=== PATIENT | male | born 1935 | race Caucasian/White ===

== ENCOUNTER → 2017-06-29 | Outpatient (CLI) | payer OTHER | LOC: FIMAGING 09:07 | PROVIDERS: ATTEND Internal Medicine | DX: S22.060A Wedge compression fracture of T7-T8 vertebra, initial encounter for closed fracture (principal) ==

== ENCOUNTER → 2017-07-18 | Outpatient (CLI) | payer OTHER | LOC: BMCIMAGING 13:17 | PROVIDERS: ATTEND Internal Medicine | DX: Z13.820 Encounter for screening for osteoporosis (principal); M81.0 Age-related osteoporosis without current pathological fracture ==

== ENCOUNTER 2018-09-26 19:08 | Inpatient (IN) | payer OTHER ==
--- NOTE | 2018-09-26 19:17 | EDPHY ---
H & P Time Seen by Provider: 09/26/18 19:14 Constitutional: Initial Vital Signs Temperature (C) 36.9 C 09/26/18 19:20 Heart Rate 56 L 09/26/18 19:20 Respiratory Rate 18 09/26/18 19:20 Blood Pressure 122/71 H 09/26/18 19:20 O2 Sat (%) 96 09/26/18 19:20 O2 Delivery Mode Room Air Allergies/Adverse Reactions: No Known Allergies Allergy (Unverified 09/26/18 19:28) Home Medications: Medication Instructions Recorded Aspirin [Aspirin 81mg (*)] 81 mg PO DAILY 09/26/18 Atorvastatin Calcium 40 mg PO DAILY@18 09/26/18 C/E/Zn/Cu/OM3/DHA/EPA/LUT/ZEAX 1 each PO DAILY@18 09/26/18 [Preservision Areds 2 Softgel] Calcium Citrate/Vitamin D3 1 each PO BID 09/26/18 [Calcium Cit 200-Vit D3 250 Tab] Cholecalciferol Vit D3 [Vitamin D3] 1 each PO DAILY@18 09/26/18 DULoxetine [Cymbalta 30 MG (*)] 30 mg PO DAILY@18 09/26/18 Donepezil HCl 10 mg PO DAILY@18 09/26/18 Ferrous Sulfate 325 mg PO DAILY@18 09/26/18 Gabapentin [Neurontin 100 MG (*)] 300 mg PO HS 09/26/18 Levothyroxine [Synthroid 75 mcg 75 mcg PO DAILY06 09/26/18 (*)] Memantine HCl 10 mg PO BID 09/26/18 Metoprolol Succinate 1.5 each PO DAILY 09/26/18 Sacubitril/Valsartan 24/26Mg 1 each PO BID 09/26/18 [Entresto 24 mg/26 mg (RX)] oxyCODONE HCL/ACETAMINOPHEN 0.25 - 0.5 each PO Q4-6PRN PRN 09/26/18 [Oxycodone-Acetaminophen 5-325] Medical Decision Making - Diagnostics Imaging Results: Imaging Impressions Head CT 09/26/18 19:17 Impression: Advanced senescent features, with no acute intracranial abnormality identified on this unenhanced CT evaluation. Findings were discussed with Cali Daniel MD at 19:36, on 09/26/2018. Head CTA 09/26/18 19:19 Impression: 1. Atherosclerotic features associated with the proximal internal carotid arteries, left greater than right, with a 19% MDS of the right ICA and a 42% MDS of the left ICA. 2. Dominant left vertebral artery with diminutive though patent right vertebral artery. CT ANGIOGRAPHY OF THE BRAIN: The major vessels of the [place] are well visualized, and there is no aneurysm, vascular malformation, flow-limiting stenosis, or acute occlusion identified. The distal cervical, petrous, cavernous , and supraclinoid portions of the internal carotid arteries are patent, although there is atherosclerotic calcific plaque associated with the peripheral margins of the cavernous and proximal supraclinoid portions of the ICAs. The A1 and A2 segments are patent as are the M1, M2, and M3 trifurcation vessels. With regards to the posterior circulation, the right vertebral artery is a diminutive vessel, ending at the level of the right PICA, and the right AICA is significantly hypoplastic. The left vertebral artery is the more dominant vessel, with some minimal calcific plaque near the skull base, and provides inflow to the basilar artery. The left AICA, the right and left superior cerebellar arteries, and the right and left posterior cerebral arteries are patent (although the right HORSE BREAKER is provided inflow from the anterior circulation via a patent right posterior communicating artery ( circulatory variant)). Impression: There is no acute intra-arterial thrombus or hemodynamically significant stenosis identified. CT Source Data: The lung apices are clear. The visualized prevertebral soft tissues are unremarkable. There are degenerative features of the mid cervical spine. The patient has a left subclavian AICD pacemaker, which precludes MR evaluation. Advanced cortical atrophy and chronic microvascular ischemic gliosis have been previously discussed. Measurement of carotid stenosis is based on the residual internal carotid diameter with [place] Symptomatic Carotid Endarterectomy Trial (NASCET) based stenosis levels. Findings were discussed with Cali Daniel MD at 20:08, on 09/26/2018. Neck CTA 09/26/18 19:19 Impression: 1. Atherosclerotic features associated with the proximal internal carotid arteries, left greater than right, with a 19% MDS of the right ICA and a 42% MDS of the left ICA. 2. Dominant left vertebral artery with diminutive though patent right vertebral artery. CT ANGIOGRAPHY OF THE BRAIN: The major vessels of the [place] are well visualized, and there is no aneurysm, vascular malformation, flow-limiting stenosis, or acute occlusion identified. The distal cervical, petrous, cavernous , and supraclinoid portions of the internal carotid arteries are patent, although there is atherosclerotic calcific plaque associated with the peripheral margins of the cavernous and proximal supraclinoid portions of the ICAs. The A1 and A2 segments are patent as are the M1, M2, and M3 trifurcation vessels. With regards to the posterior circulation, the right vertebral artery is a diminutive vessel, ending at the level of the right PICA, and the right AICA is significantly hypoplastic. The left vertebral artery is the more dominant vessel, with some minimal calcific plaque near the skull base, and provides inflow to the basilar artery. The left AICA, the right and left superior cerebellar arteries, and the right and left posterior cerebral arteries are patent (although the right HORSE BREAKER is provided inflow from the anterior circulation via a patent right posterior communicating artery ( circulatory variant)). Impression: There is no acute intra-arterial thrombus or hemodynamically significant stenosis identified. CT Source Data: The lung apices are clear. The visualized prevertebral soft tissues are unremarkable. There are degenerative features of the mid cervical spine. The patient has a left subclavian AICD pacemaker, which precludes MR evaluation. Advanced cortical atrophy and chronic microvascular ischemic gliosis have been previously discussed. Measurement of carotid stenosis is based on the residual internal carotid diameter with [place] Symptomatic Carotid Endarterectomy Trial (NASCET) based stenosis levels. Findings were discussed with Cali Daniel MD at 20:08, on 09/26/2018. Imaging: Discussed imaging studies w/ call center director Radiologist, I viewed and interpreted images myself ED Course/Re-evaluation: CHIEF COMPLAINT: Weakness HISTORY OF PRESENT ILLNESS: The patient is an 83 y/o male with a history of a pacemaker arriving with his after he developed weakness on the right side and vision issues in his right eye. Per his the patient has been more weak since Saturday, 3 days ago. Today the patient fell over and then developed right-sided weakness. The patient is unsure if he hit his head upon impact. After the fall he started complaining of right vision loss and his noticed that the patient was listing to the right. He does take 81mg PO Aspirin daily; he is not on any anticoagulants. No fever, headache, body aches, lightheadedness, chest pain, heart palpitations, shortness of breath, cough, abdominal pain, urinary or bowel complaints, numbness, paresthesias. REVIEW OF SYSTEMS: A 10 point review of systems was performed and is negative with the exception of the elements mentioned in the history of present illness. PHYSICAL EXAM: HR, BP, O2 Sat, RR. Temp noted General Appearance: Alert, well hydrated, listing to the right, and non-toxic appearing. Head: Atraumatic without scalp tenderness or obvious injury Eyes: Pupils equal, round, reactive to light and accommodation, EOMI, no trauma , no injection. Ears: Clear bilaterally, no perforation, normal landmarks Nose: Atraumatic, no rhinorrhea, clear. Throat: There is no erythema or exudates, no lesions, normal tonsils, mucus membranes moist. Neck: Supple, 2+ carotid upstroke, nontender, no lymphadenopathy. Respiratory: No retractions, no distress, no wheezes, and no accessory muscle use. Lungs are clear to auscultation bilaterally. Cardiovascular: Regular rate and rhythm, no murmurs, rubs, or gallops. Bilateral carotid, radial, dorsalis pedis, and posterior tibial pulses intact. Good capillary refill all extremities. Gastrointestinal: Abdomen is soft, nontender, non-distended, no masses, no rebound, no guarding, no peritoneal signs. Musculoskeletal: Normal active ROM of all extremities, atraumatic. Neurological: Listing to the right. Alert and interactive. The patient has normal DTRs and non-focal cranial nerves, sensory, and cerebellar exam. Skin: No rashes, good turgor, no nodules on palpation. Past medical history: Scoliosis Past surgical history: Pacemaker Family history: Denies Social history: at bedside, retired, lives in [place] DIAGNOSTICS/PROCEDURES/CRITICAL CARE TIME: Head CT: No acute findings. Head/Neck CTA: Atherosclerotic features associated with the proximal internal carotid arteries, left greater than right, with a 19% MDS of the right ICA and a 42% MDS of the left ICA. Dominant left vertebral artery with diminutive though patent right vertebral artery. EKG: The 12 lead EKG was interpreted by myself as sinus rhythm with a rate of 56 , LBBB. See hard copy and/or "tracemaster" electronic copy for interpretation. Critical care time spent by me, Dr. Daniel, exclusively with this patient was 30 minutes, exclusive of PA time and exclusive of procedures. The organ system at risk was neurovascular and I gave IVF, had imaging studies performed, and transferred the patient to a neurosurgeon to prevent worsening of the patients condition. DIFFERENTIAL DIAGNOSIS: The differential diagnosis for the patient's neurologic deficits included but was not limited to peripheral causes, central causes including CVA, TIA, electrolyte abnormalities and dehydration, cardiogenic causes, atypical causes like migraine syndrome. MEDICAL DECISION MAKING: The patient is an 83 y/o male with a history of a pacemaker arriving with his after he developed weakness on the right side and vision issues in his right eye. The patient has been more weak since Saturday, 3 days ago. Today the patient fell over and then developed right-sided weakness. The patient is unsure if he hit his head upon impact. After the fall he started complaining of right vision loss and his noticed that the patient was listing to the right. He does take 81mg PO Aspirin daily; he is not on any anticoagulants. The time of onset is not concrete as his weakness started several days ago, but the right-sided listing started 10 hours ago. We cannot perform an MRI as he has a pacemaker and cochlear implants. Head CT, labs, and EKG ordered. 1934: I interpreted patient's EKG as sinus rhythm with a rate of 56, LBBB. 1936: I spoke with Dr. Tracey, radiologist, regarding this patient's head CT. There are not acute findings. Patient will need head and neck CTA's pending creatinine level. 1939: Patient's creatinine is 1.2; he is safe for head and neck CTA's. 2007: I spoke with Dr. Tracey, there is no acute thrombus or occlusion seen. This patient is not a TPA candidate as the time of onset is unknown. We still treated this patient as a stroke alert due to his neurological deficits. 2021: I consulted with the hospitalist service, Dr. Jo accepts admission of this patient for right-sided weakness and a probable stroke. 2023: I spoke with the patient's regarding plan for admission. She is comfortable with this plan. 2044: Reassessed patient and discussed plan for admission. He is comfortable with this plan. - Data Points Laboratory Results: Laboratory Results 09/26/18 19:30 09/26/18 19:30 09/26/18 09/26/18 09/26/18 20:00 19:40 19:39 WBC RBC Hgb POC Hgb 13.9 gm/dL gm/dL (13.7-17.5) Hct POC Hct 41 % % (40-51) MCV MCH MCHC RDW Plt Count MPV Neut % (Auto) Lymph % (Auto) [place] % (Auto) Eos % (Auto) Baso % (Auto) Nucleat RBC Rel Count Absolute Neuts (auto) Absolute Lymphs (auto) Absolute Monos (auto) Absolute Eos (auto) Absolute Basos (auto) Absolute Nucleated RBC Immature Gran % Immature Gran # PT INR POC Sodium 139 mEq/L mEq/L (135-145) Sodium POC Potassium 5.2 mEq/L H mEq/L (3.3-5.0) Potassium POC Chloride 104 mEq/L mEq/L (97-110) Chloride Carbon Dioxide POC Total CO2 26 mEq/L mEq/L (22-31) Anion Gap POC BUN 45 mg/dL H mg/dL (7-23) BUN Creatinine POC Creatinine 1.2 mg/dL mg/dL (0.7-1.3) Estimated GFR Glucose POC Glucose 81 mg/dL mg/dL (70-100) Calcium POC Troponin I 0.01 ng/mL ng/mL (0.00-0.08) Urine Color YELLOW Urine Appearance CLEAR Urine pH 5.0 (5.0-7.5) Ur Specific Dew[place] 1.029 (1.002-1.030) Urine Protein NEGATIVE (NEGATIVE) Urine Ketones NEGATIVE (NEGATIVE) Urine Blood NEGATIVE (NEGATIVE) Urine Nitrate NEGATIVE (NEGATIVE) Urine Bilirubin NEGATIVE (NEGATIVE) Urine Urobilinogen NEGATIVE EU EU (0.2-1.0) Ur Leukocyte Esterase NEGATIVE (NEGATIVE) Urine RBC NONE SEEN /hpf /hpf (0-3) Urine WBC 1-3 /hpf /hpf (0-3) Ur Epithelial Cells NONE SEEN /lpf /lpf (NONE-1+) Urine Glucose NEGATIVE (NEGATIVE) 09/26/18 09/26/18 09/26/18 19:30 19:30 19:30 WBC 7.73 10^3/uL 10^3/uL (3.80-9.50) RBC 4.26 10^6/uL L 10^6/uL (4.40-6.38) Hgb 13.4 g/dL L g/dL (13.7-17.5) POC Hgb Hct 39.8 % L % (40.0-51.0) POC Hct MCV 93.4 fL fL (81.5-99.8) MCH 31.5 pg pg (27.9-34.1) MCHC 33.7 g/dL g/dL (32.4-36.7) RDW 13.9 % % (11.5-15.2) Plt Count 274 10^3/uL 10^3/uL (150-400) MPV 8.6 fL L fL (8.7-11.7) Neut % (Auto) 70.2 % % (39.3-74.2) Lymph % (Auto) 17.6 % % (15.0-45.0) [place] % (Auto) 10.2 % % (4.5-13.0) Eos % (Auto) 1.2 % % (0.6-7.6) Baso % (Auto) 0.4 % % (0.3-1.7) Nucleat RBC Rel Count 0.0 % % (0.0-0.2) Absolute Neuts (auto) 5.43 10^3/uL 10^3/uL (1.70-6.50) Absolute Lymphs (auto) 1.36 10^3/uL 10^3/uL (1.00-3.00) Absolute Monos (auto) 0.79 10^3/uL 10^3/uL (0.30-0.80) Absolute Eos (auto) 0.09 10^3/uL 10^3/uL (0.03-0.40) Absolute Basos (auto) 0.03 10^3/uL 10^3/uL (0.02-0.10) Absolute Nucleated RBC 0.00 10^3/uL 10^3/uL (0-0.01) Immature Gran % 0.4 % % (0.0-1.1) Immature Gran # 0.03 10^3/uL 10^3/uL (0.00-0.10) PT 12.7 SEC SEC (12.0-15.0) INR 0.99 (0.83-1.16) POC Sodium Sodium 134 mEq/L L mEq/L (135-145) POC Potassium Potassium 5.5 mEq/L H mEq/L (3.5-5.2) POC Chloride Chloride 103 mEq/L mEq/L (97-110) Carbon Dioxide 24 mEq/l mEq/l (22-31) POC Total CO2 Anion Gap 7 mEq/L mEq/L (6-14) POC BUN BUN 53 mg/dL H mg/dL (7-23) Creatinine 1.1 mg/dL mg/dL (0.7-1.3) POC Creatinine Estimated GFR > 60 Glucose 81 mg/dL mg/dL (70-100) POC Glucose Calcium 9.3 mg/dL mg/dL (8.5-10.4) POC Troponin I Urine Color Urine Appearance Urine pH Ur Specific Dewar Urine Protein Urine Ketones Urine Blood Urine Nitrate Urine Bilirubin Urine Urobilinogen Ur Leukocyte Esterase Urine RBC Urine WBC Ur Epithelial Cells Urine Glucose Medications Given: Sodium Chloride (Ns) 500 mls @ 250 mls/hr IV EDNOW ONE PRN Reason: Protocol Stop: 09/26/18 22:04 Last Admin: 09/26/18 20:06 Dose: 500 mls Point of Care Test Results: Chemistry 09/26/18 09/26/18 19:40 19:39 POC Sodium 139 mEq/L mEq/L (135-145) POC Potassium 5.2 mEq/L H mEq/L (3.3-5.0) POC Chloride 104 mEq/L mEq/L (97-110) POC Total CO2 26 mEq/L mEq/L (22-31) POC BUN 45 mg/dL H mg/dL (7-23) POC Creatinine 1.2 mg/dL mg/dL (0.7-1.3) POC Glucose 81 mg/dL mg/dL (70-100) POC Troponin I 0.01 ng/mL ng/mL (0.00-0.08) ISTAT H&H 09/26/18 19:39 POC Hgb 13.9 gm/dL gm/dL (13.7-17.5) POC Hct 41 % % (40-51) Departure - Departure Disposition: [facility] Inpatient Acute Clinical Impression: Acute ischemic stroke, Right sided weakness Condition: Fair Referrals: Kamilla Gomez MD [Primary Care Provider] - As per Instructions Report Scribed for: Cali Daniel Report Scribed by: Loan Paula Date of Report: 09/26/18 Time of Report: 19:17
[2018-09-26 19:41] LABS: PLATELET COUNT 274 10^3/uL (150-400)
[2018-09-26] MEDS ORDERED: IOPAMIDOL (ISOVUE 370) 100 ML BTL IV ONE (19:41)
[2018-09-26 19:51] LABS: INR 0.99 (0.83-1.16); PROTIME(PATIENT) 12.7 SEC (12.0-15.0)
[2018-09-26] MEDS ORDERED: NS 500 ML IV ONE (20:05)
[2018-09-26] MEDS ORDERED: LABETALOL HCL 5 MG/ML 20 ML MDV IVP PRN (20:28)
[2018-09-26] MEDS ORDERED: OXYCODONE/APAP 5/325 TAB PO PRN (21:20)
--- NOTE | 2018-09-26 22:10 | GHP ---
[f rep st] HISTORY AND PHYSICAL DATE OF ADMISSION: 09/26/2018 CHIEF COMPLAINT: Falls. PRIMARY LOCOMOTIVE FIRER/FIREMAN: Dr. Stinson. HISTORY OF PRESENT ILLNESS: An 83-year-old male with CAD, prior LAD stents, hypothyroidism, cognitiv e impairment, presenting with multiple falls. Most of the history is obtained from his who is a t bedside. He had 2-3 falls today. Initially, he had an unwitnessed fall in his room in which he hi t the left side of his head. He walked out of the room and his noted that he could not remember details of the fall. When asked, he denies prodromal chest pain, palpitations, nausea, vomiting, or clamminess. The 2nd time was present and noticed that he was falling to the right and landed o n the side of the vanity on his butt. He noticed weakness on his entire right side and loss of visio n peripherally on that side after one of the falls. did not note dysarthria or facial droop. He is normally very active. He goes to the gym 3 times a week. In ER, CTA showed noncritical stenos is of bilateral carotid arteries. CT head with no acute stroke. Cannot perform an MRI with cochlear implants and pacemaker. REVIEW OF SYSTEMS: I completed a 10-point review of systems, negative except in HPI. PAST MEDICAL HISTORY: Coronary artery disease with LAD stents 2004, hypothyroidism, cognitive impair ments, systolic heart failure. PAST SURGICAL HISTORY: Stents. FAMILY HISTORY: Father of [place] age 65. Mother, he was unclear. SOCIAL HISTORY: Lives with his in [place] over 40 years. He has 2 kids of his own. She has 2. He drinks 2 beers a week. He was previously an senior qa engineer. No tobacco or illicits. ALLERGIES: No allergies. HOME MEDICATIONS: Aspirin 81 mg daily, calcium, vitamin D3, atorvastatin 40 mg daily, donepezil 10 m g daily, memantine 10 twice daily, iron sulfate, Cymbalta 30 mg daily, Entresto, metoprolol _ mg daily, Percocet as needed, levothyroxine 75 mcg daily, gabapentin 300 mg at bedtime. PHYSICAL EXAMINATION: VITAL SIGNS: Temperature 36.7, blood pressure 119/66, heart rate in the 50s, respirations 18, 96% on room air. GENERAL: He is well appearing, no acute distress. HEENT: Small ecchymosis, left forehead. Moist mucous membranes. CV: Regular rate and rhythm. LUNGS: Clear. A BDOMEN: Soft, nontender. : No Terry. MUSCULOSKELETAL: 5/5 upper and lower extremity strength. NE URO: 2 through 12 intact. No facial droop. Positive pronator drift on the right. Visual field cut on the right. PSYCH: Alert and oriented x3. LABORATORY DATA: WBC 7, hemoglobin 13, hematocrit 39, platelets 274. Coags within normal. Sodium 1 39, potassium 5.2, chloride 104, BUN 45, creatinine is 1.2, glucose 81. Troponin 0.018. Imaging as stated in HPI. ASSESSMENT AND PLAN: 1. Right-sided weakness. Concern for subacute versus acute stroke. No acute finding on CT head. N o critical carotid stenosis. Cannot perform MRI with cochlear implants and pacemaker. Will pursue t he other studies, including echocardiogram, monitor on telemetry. He is on an aspirin. Blood pressu re is currently controlled. Physical therapy, occupational therapy, speech evaluation. 2. Coronary artery disease, prior stents. Continue home medications. 3. Hyperlipidemia. Statin. 4. Hypothyroidism. Levothyroxine. 5. Cognitive impairment. Memantine and Aricept. 6. Compensated systolic heart failure. Allow for permissive hypertension within the first 48 hours and then we will resume home medications. Followed by Dr. Stinson. 7. Diet. Cardiac. 8. Deep venous thrombosis prophylaxis. Sequential compression devices. DISPOSITION: Patient warrants inpatient admission given concern for stroke, warranting therapies, bl ood pressure monitoring, and telemetry. /[id number]/MODL
[2018-09-27] MEDS: LEVOTHYROXINE 75 MCG TAB PO SCH (06:02)
[2018-09-27] MEDS ORDERED: PERFLUTREN LIPID MICROSPHERES 1.1 MG/ML VIAL IV ONE (10:00)
[2018-09-27] MEDS: MEMANTINE HCL 5 MG TAB PO SCH ×2 (10:20→20:10)
[2018-09-27] MEDS: CALCIUM CITRATE PO SCH ×2 (10:21→20:10)
[2018-09-27] MEDS: ASPIRIN 81 MG CHEWABLE TAB PO SCH (10:21)
[2018-09-27] MEDS: VITAMIN D3 PO SCH ×2 (10:21→20:10)
--- NOTE | 2018-09-27 12:31 | ECHO ---
[email or web address] [address] [address] Main: [phone] Echocardiography Examination Transthoracic Name: LETICIA COLLADO MR#: [id number] Study Date: 09/27/2018 Study Time: 09:15 AM Date of : 1935 Age: 83 year(s) Height: 167.6 cm (66 in.) Weight: 65.77 kg (145 lb.) BSA: 1.74 m2 Gender: Male Examination: Echo with Definity Contrast: 0.330 mg I.V. dose of Definity was Echo with Agitated Saline administered Image Quality: Adequate Rhythm: Heart Rate: BP: 106 mmHg/64 mmHg Indication: Ischemic Stroke Procedure Staff Referring Physician: Manufacturing Chief Engineer: Yessi Arechiga [facility] Reading Physician: Jay Quintanilla MD Requesting Provider: Ordering Physician: IDA Indication: Ischemic Stroke Measurements Chambers AV/MV Label Value Normal Value Label Value Normal Value LVOTd 2.1 cm (1.9cm - 2.1cm) AV PGmax 19 mmHg LVOT VTI 15.3 cm (18cm - 22cm) AV PGmean 13 mmHg LVDd, 2D 5.7 cm (4.2cm - 5.9cm) AV Vmax 2.16 m/s LVDs, 2D 4.9 cm (2.1cm - 4cm) GILBERT (VTI) 1.2 cm2 IVSd, 2D 1.3 cm (0.6cm - 1.1cm) MV E Vmax 0.36 m/s LVPWd, 2D 1.3 cm (0.6cm - 1cm) MV A Vmax 0.67 m/s LVEF, 2D 27 % (54% - 74%) MV E/A 0.54 LVOT PGmean 2 mmHg MV E/E' lateral 3.1 LVOT Vmean 0.63 m/s MV E/E' septal 6.8 (0.45 - 1.25) RVDd, 2D 3.1 cm (1.9cm - 3.8cm) MV DT 338 ms LA Volume, BP 88 ml (18ml - 58ml) MV E' septal 0.05 m/s LADs, 2D 4.5 cm (3cm - 4cm) MV PHT 0.12 s LAESV index, BP 50.6 ml/m2 MVA PHT 1.9 cm2 RA Area 21.1 cm2 MR Reg. Volume 117 ml Additional Vessels MR Vmax 4.78 m/s Label Value Normal Value MR VTI 192 cm AoAsc 3.4 cm MR (ERO) 0.61 cm2 AoRoot, 2D 3.2 cm (1.4cm - 2.6cm) MV E' lateral 0.12 m/s MR PISA Radius 1.1 cm Patient: LETICIA COLLADO Study Date: 09/27/2018 Page 1 of 3 09:15 AM MV E/E' mean 4.24 MR PISA Alias V. 38.5 cm/s MV PHT 115 ms MV E' mean 0.08 m/s TV/PV Label Value Normal Value PV PGmax 3 mmHg PV Vmax, Caliper 0.92 m/s (0.6m/s - 0.9m/s) Conclusions Left Ventricle: Left ventricle is dilated. Severely reduced systolic left ventricular function. The EF is visually estimated to be 25 %. Global hypokinesis with multiple focal wall motion abnormalities as diagramed below. With Definitiy contrast administration, no thrombus is identified in the left ventricle. IAS: No evidence of spontaneous contrast passage with agitated saline study. Findings Left Ventricle: Left ventricle is dilated. Severely reduced systolic left ventricular function. EF evaluated by EF (single plane Swanson's). The EF is visually estimated to be 25 %. There is mild concentric left ventricular hypertrophy. Global hypokinesis with multiple focal wall motion abnormalities as diagramed below. The mid anterior, mid anteroseptal, apical anterior and apical septal left ventricular wall segments are akinetic (3). The apex left ventricular segment is dyskinetic (4). Grade I Diastolic Dysfunction. With Definitiy contrast administration, no thrombus is identified in the left ventricle. Right Ventricle: Normal size right ventricle. There is a pacing/ICD wire present in the right ventricle. Left Atrium: The left atrium is severely dilated. IAS: No evidence of spontaneous contrast passage with agitated saline study. Right Atrium: The right atrium is mildly dilated. Mitral Valve: Mitral valve appears structurally normal. Moderate mitral regurgitation. No mitral valve stenosis. There is mild mitral thickening. Aortic Valve: Aortic leaflets are structurally normal. Mild aortic regurgitation is present. There is mild aortic stenosis. Aortic leaflets exhibit calcification. Tricuspid Valve: Tricuspid valve leaflets are structurally normal. Mild tricuspid regurgitation. No tricuspid valve stenosis. Pulmonary artery pressure cannot be assessed due to inadequate TR signal. Pulmonic Valve: Pulmonic leaflets are structurally normal. Trivial pulmonic valve regurgitation is present. Aorta: The aortic root size in 2D measures 3.2 cm. The ascending aorta measures 3.4 cm. Aorta Measurements AoRoot, 2D is 3.2 cm. Patient: LETICIA COLLADO Study Date: 09/27/2018 Page 2 of 3 09:15 AM Exam Details Procedure Ordered: Echo with Definity, Echo with Agitated Saline Procedure Status: Routine study Image Quality: Adequate Contrast: 0.330 mg I.V. dose of Definity was administered Intravenous contrast was administered to opacify the left ventricle Facility Location: Bedside (No Signature Object) Wall Motion Scores Patient: LETICIA COLLADO Study Date: 09/27/2018 Page 3 of 3 09:15 AM [id number]
[2018-09-27] MEDS ORDERED: NS 1,000 ML IV ONE (12:58)
--- NOTE | 2018-09-27 13:30 | GCON ---
[f rep st] CONSULTATION NEUROLOGY CONSULT REFERRING PHYSICIAN: Yessi Jo MD CHIEF COMPLAINT: TIA. HISTORY OF PRESENT ILLNESS: Mr. 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 He has significant cardiac disease status post stenting, and heart failure followed by Dr. Stinson. The patient has had some mechanical falls over the last few weeks, but yesterday he had a fall specifically because he suddenly was listing to the right. There may have been some visual disturbance, however, that symptom is not clear. The patient states he has had on and off visual disturbances over the years. But there was very specific right-sided listing, which brought him to the ED. He had a full stroke evaluation in the ED. CTA of the head without contrast showed age-related changes. CTA of the neck showed noncritical ICA stenosis at 19% on the right and 42% on the left. Angiography of the brain showed no large vessel occlusion. The patient also had an echocardiogram, which was significantly abnormal with left ventricle dilation, reduced LV function and a 25% ejection fraction. There was also a left atrium dilation to a severe degree and the right atrium is mildly dilated. There is moderate mitral valve regurgitation. He has had no further symptoms. REVIEW OF SYSTEMS: A 10-point review was only pertinent to the HPI. For past medical history, social history, family history, home medications, allergies see Dr. Jo's H and P PHYSICAL EXAMINATION: VITAL SIGNS: Blood pressure is 106/64, temperature 36.7 , heart rate 60s to 70s. GENERAL: In no acute distress. Very pleasant. NEUROLOGIC: He is awake and alert lucid. He has no aphasia. On sensory exam, no light touch abnormalities in all 4 extremities. On confrontational visual field exam there were no obvious abnormalities. On coordination, there was some dysmetria in his right upper extremity with past-pointing versus the left. There was also possible trace dysmetria in the right lower extremity. On motor exam, he has no focal weakness in upper and lower extremities. IMPRESSION/PLAN: 1. Right-sided appendicular ataxia. This patient may have had a small right cerebellar hemisphere infarction based on his history and neurologic exam with listing to the right and the exam findings of right upper extremity dysmetria. Discussed at length. In terms of mechanism, we discussed that this could of been a lacunar type infarct versus a cardioembolic infarct, for example. The patient cannot get an MRI brain due to a cochlear implant. He certainly could be at risk for both mechanisms noted above in terms of small- vessel versus or embolic phenomenon. This occurred while on aspirin 81 mg daily. In terms of an embolic differential diagnosis, we discussed that he could have atrial fibrillation versus an intracardiac thrombus from his congestive heart failure and low ejection fraction. We will add Plavix 75 mg daily to aspirin 81 mg daily for the time being. He should be on dual anti-platelet therapy for at least 21 days and then he can go back to aspirin alone. We discussed potential risks, benefits, and alternatives of dual anti-platelet therapy including the risk of bruising and bleeding. I also recommend Cardiology consultation to consider JUSTIN to visualize any intracardiac thrombus based on his low ejection fraction. If that were the case , then we would be open to discussion to switching him to an oral anticoagulant. If the JUSTIN is negative for intracardiac thrombus, then the next step would be outpatient prolonged ECG monitoring to screen for paroxysmal atrial fibrillation. This could be done either with a 30-day event monitor first or going straight to an implantable loop monitor. This was all discussed in great detail with the patient and his . We discussed with the hospital medicine team. We will follow up after cardiology consultation to review results of the patient again. No further recommendations now. Thank for the consultation. Seventy total minutes floor time; over 50% in direct counseling and coordination of care. /[id number]/MODL MTDD
--- NOTE | 2018-09-27 13:37 | HOSPPROG ---
Hospitalist Progress Note Assessment/Plan: 83 year old female admitted for diverticulitis. Chart, labs and imaging reviewed as patient is new to me. Diverticulitis, acute- I reviewed the CT scan which shows acute diverticulitis. Patient still with substantial pain and nausea. Not able to take po adequately today. vitals remain wnl. -cont intravenous abx -cont intravenous saline -cont IV pain medications (if po faile) Pain- due to diverticulitis. Patient says she cannot tolerate PO. cont PRN analgesics. GERD- cont PPi dispo- change to inaptient as patient is still requiring IV hydration, antibiotics and medications and cannot tolerate PO Subjective: still throwing up, substantil pain, has not eaten anything. Objective: Vital Signs Temp Pulse Resp BP Pulse Ox 36.7 C 59 L 22 H 106/61 95 09/27/18 11:22 09/27/18 11:22 09/27/18 11:22 09/27/18 11:22 09/27/18 11:22 Laboratory Results 09/27/18 09:20 09/26/18 09/27/18 09/28/18 05:59 05:59 05:59 Intake Total 600 Output Total 250 Balance 350 PT 12.7 SEC (12.0-15.0) 09/26/18 19:30 INR 0.99 (0.83-1.16) 09/26/18 19:30 - Physical Exam Constitutional: no apparent distress, appears nourished, not in pain Eyes: PERRL, anicteric sclera, EOMI Ears, Nose, Mouth, Throat: moist mucous membranes, hearing normal, ears appear normal, no oral mucosal ulcers Cardiovascular: regular rate and rhythym, no murmur, rub, or gallop Respiratory: no respiratory distress, no rales or rhonchi, clear to auscultation Gastrointestinal: normoactive bowel sounds, tenderness, distension Genitourinary: no bladder fullness, no bladder tenderness, no renal bruits Skin: no rashes or abrasions, no fluctuance, no induration Musculoskeletal: full muscle strength, no muscle tenderness, normal joint ROM Neurologic: AAOx3, sensation intact bilaterally Psychiatric: interacting appropriately, not anxious, not encephalopathic, thought process linear Lymph, Heme, Immunologic: no cervical LAD, no supraclavicular LAD ICD10 Worksheet Patient Problems: Problems Problem Status Onset Acute ischemic stroke Acute Right sided weakness Acute
--- NOTE | 2018-09-27 14:30 | ASMTCMCOM ---
CM Note CM Note Notes: Pt in with CVA and reports multiples falls, pt normally active. Pt resides independently with . OT rec inpatient rehab, the consult order is in. PT/OT/inpatient rehab evals are TBD. D/c plan is TBD Date Signed: 09/27/2018 02:29 PM Electronically Signed By:MICKY Chi
--- NOTE | 2018-09-27 15:10 | HOSPPROG ---
Hospitalist Progress Note Assessment/Plan: 83 year old male with pmh of cad, CHF admitted for concerns of a CVA. Right sided weakness- Not able to get MRI, CT negative. Echo this am with LVEF of 25% with global hypokinesis. Case discussed with neurology who feels this could be a CVA 2/2 to thrombus from left atrial appendage vs thromboembolic from low EF. Recommends JUSTIN. discussed with cardiology who is uncertain JUSTIN would be of benefit, but agreed to consult. -cont telemetry in case he goes into afib -add plavix to asa for 21 days, -cards to consult -PT/OT CHF- hx of CHF, cad with stents, echo today wtih LVEF of 25%. on entresto, asa, statin, bb. Cont all of these -cards to see regarding benefit of anticoagulation in setting of CVA and low ef CAD- on toprol, statin, entresto cognitive impairment- cont NMDA Hypothyroid- synthroid PPX- SCDs, Plavix, asa Fluids- PO Lytes- WNL Nutrition- regular Cor- DNR Dispo- inpatient for cva. Subjective: feels fine, still some visual problems and right weakness. Objective: Vital Signs Temp Pulse Resp BP Pulse Ox 36.7 C 63 22 H 106/61 88 L 09/27/18 11:22 09/27/18 11:28 09/27/18 11:22 09/27/18 11:22 09/27/18 11:28 Laboratory Results 09/27/18 09:20 09/26/18 09/27/18 09/28/18 05:59 05:59 05:59 Intake Total 600 Output Total 250 Balance 350 PT 12.7 SEC (12.0-15.0) 09/26/18 19:30 INR 0.99 (0.83-1.16) 09/26/18 19:30 - Physical Exam Constitutional: no apparent distress, appears nourished, not in pain Eyes: PERRL, anicteric sclera, EOMI Ears, Nose, Mouth, Throat: moist mucous membranes, hearing normal, ears appear normal, no oral mucosal ulcers Cardiovascular: regular rate and rhythym, no murmur, rub, or gallop Respiratory: no respiratory distress, no rales or rhonchi, clear to auscultation Gastrointestinal: normoactive bowel sounds, soft, non-tender abdomen, no palpable masses Genitourinary: no bladder fullness, no bladder tenderness, no renal bruits Skin: no rashes or abrasions, no fluctuance, no induration Musculoskeletal: full muscle strength, no muscle tenderness, normal joint ROM Neurologic: AAOx3, sensation intact bilaterally Psychiatric: interacting appropriately, not anxious, not encephalopathic, thought process linear Lymph, Heme, Immunologic: no cervical LAD, no supraclavicular LAD ICD10 Worksheet Patient Problems: Problems Problem Status Onset Acute ischemic stroke Acute Right sided weakness Acute
[2018-09-27] MEDS: CLOPIDOGREL BISULFATE 75 MG TAB PO SCH ×2 (15:27→17:18)
[2018-09-27] MEDS: DULoxetine 30 MG CAP PO SCH (17:18)
[2018-09-27] MEDS: PRESERVISION AREDS2 FORMULA EYE VIT 1 EACH PO SCH (17:18)
[2018-09-27] MEDS: DONEPEZIL HCL 5 MG TAB PO SCH (17:18)
[2018-09-27] MEDS: ATORVASTATIN CALCIUM 40 MG TAB PO SCH (17:18)
[2018-09-27] MEDS: CHOLECALCIFEROL VIT D3 1,000 UNITS TAB PO SCH (17:18)
[2018-09-27] MEDS: FERROUS SULFATE 325 MG TAB PO SCH (17:18)
[2018-09-27] MEDS: GABAPENTIN 300 MG CAP PO SCH (20:10)
--- NOTE | 2018-09-27 23:06 | PDMN ---
Medical Necessity Medical necessity: [facility] [place] M84 stroke: ischemic 2 days: acute stroke: CVA 2/2 to thrombus from L atrial appendage vs. thromboembolic from low EF. further cardiology consult pending also for cardioembolic thrombus. PMHx: CAD, with LAD stents 2004, hypothyroidism, cognitive impairments, systolic heart failure,
[2018-09-28] MEDS: LEVOTHYROXINE 75 MCG TAB PO SCH (05:32)
[2018-09-28] MEDS: MEMANTINE HCL 5 MG TAB PO SCH ×2 (08:14→21:21)
[2018-09-28] MEDS: ASPIRIN 81 MG CHEWABLE TAB PO SCH (08:14)
[2018-09-28] MEDS: CLOPIDOGREL BISULFATE 75 MG TAB PO SCH (08:14)
[2018-09-28] MEDS: CALCIUM CITRATE PO SCH ×2 (08:15→21:21)
[2018-09-28] MEDS: VITAMIN D3 PO SCH ×2 (08:15→21:21)
--- NOTE | 2018-09-28 09:14 | PDCARCONS ---
Cardiology Consult Reason for Consult: Stroke, suspect embolic Chief Complaint: "I'd rather be home" Requesting Physician: Dr Leger History of Present Illness: Mr Daley is a very pleasant 83yo M who is followed by Dr Stinson in the outpatient setting for history of CAD, ischemic cardiomyopathy sp DC ICD (with tachy detections disabled per his preference). He is currently admitted with a right cerebral stroke, which is suspected to be embolic in nature. He underwent workup with echocardiography, which was personally interpreted by me - see formal report for full details - LVEF 25%, no LV thrombus but relatively stagnant flow; no mitral stenosis; no left-sided valvular lesions to suggest cause of stroke. I am consulted for consideration of JUSTIN, to rule out DARYL thrombus. I personally performed ICD interrogation at the bedside today, which shows multiple detections of paroxysmal atrial fibrillation, which are relatively brief and rate-controlled; however, in light of stroke, this clearly qualifies Mr Daley for anticoagulation therapy, and thus I don't think that invasive workup with JUSTIN would add anything to his management at this stage. Mr Daley reports that he's feeling well, but "I'd rather be at home". He denies any chest pain/pressure, dyspnea, palpitations, lightheadedness. History Information - Allergies/Home Medication List Allergies/Adverse Reactions: No Known Allergies Allergy (Unverified 09/26/18 19:28) Home Medications: Aspirin [Aspirin 81mg (*)] 81 mg PO DAILY 09/26/18 [Last Taken 09/26/18] Atorvastatin Calcium 40 mg PO DAILY@09/26/18 [Last Taken 09/26/18] C/E/Zn/Cu/OM3/DHA/EPA/LUT/ZEAX [Preservision Areds 2 Softgel] 1 each PO DAILY@ 09/26/18 [Last Taken 09/26/18] Calcium Citrate/Vitamin D3 [Calcium Cit 200-Vit D3 250 Tab] 1 each PO BID [Last Taken 09/26/18 18:00] Cholecalciferol Vit D3 [Vitamin D3] 1 each PO DAILY@09/26/18 [Last Taken ] DULoxetine [Cymbalta 30 MG (*)] 30 mg PO DAILY@09/26/18 [Last Taken 09/26/18] Donepezil HCl 10 mg PO DAILY@18 09/26/18 [Last Taken 09/26/18] Ferrous Sulfate 325 mg PO DAILY@18 09/26/18 [Last Taken 09/26/18] Gabapentin [Neurontin 100 MG (*)] 300 mg PO HS 09/26/18 [Last Taken 09/26/18] Levothyroxine [Synthroid 75 mcg (*)] 75 mcg PO DAILY06 09/26/18 [Last Taken ] Memantine HCl 10 mg PO BID 09/26/18 [Last Taken 09/26/18] Metoprolol Succinate 1.5 each PO DAILY 09/26/18 [Last Taken 09/26/18] Sacubitril/Valsartan 24/26Mg [Entresto 24 mg/26 mg (RX)] 1 each PO BID 09/26/18 [Last Taken 09/26/18] oxyCODONE HCL/ACETAMINOPHEN [Oxycodone-Acetaminophen 5-325] 0.25 - 0.5 each PO Q4-6PRN PRN 09/26/18 [Last Taken Unknown] I have personally reviewed and updated: family history, medical history, social history Past Medical History: - Past Medical History Additional medical history: CAD, ischemic cardiomyopathy sp ICD implant - Family History Additional family history: no SCA - Social History Smoking Status: Never smoked Alcohol Use: None Physical Exam Physical Exam: Temp Pulse Resp BP Pulse Ox 36.7 C 60 14 109/62 96 09/28/18 07:41 09/28/18 07:41 09/28/18 07:41 09/28/18 07:41 09/28/18 07:41 O2 (L/minute) 2 Constitutional: no apparent distress, not in pain Eyes: PERRL, anicteric sclera Ears, Nose, Mouth, Throat: moist mucous membranes Cardiovascular: regular rate and rhythym, systolic murmur (holosystolic soft M at apex) Peripheral Pulses: 2+: carotid (R), carotid (L), dorsalis-pedis (R), dorsalis- pedis (L) Respiratory: no respiratory distress, clear to auscultation Gastrointestinal: normoactive bowel sounds Skin: warm, no rashes or abrasions Neurologic: AAOx3 Psychiatric: interacting appropriately, not anxious, not encephalopathic Lab and Imaging 09/26/18 19:30 09/27/18 09:20 WBC 7.73 10^3/uL (3.80-9.50) 09/26/18 19:30 RBC 4.26 10^6/uL (4.40-6.38) L 09/26/18 19:30 Hgb 13.4 g/dL (13.7-17.5) L 09/26/18 19:30 POC Hgb 13.9 gm/dL (13.7-17.5) 09/26/18 19:39 Hct 39.8 % (40.0-51.0) L 09/26/18 19:30 POC Hct 41 % (40-51) 09/26/18 19:39 MCV 93.4 fL (81.5-99.8) 09/26/18 19:30 MCH 31.5 pg (27.9-34.1) 09/26/18 19:30 MCHC 33.7 g/dL (32.4-36.7) 09/26/18 19:30 RDW 13.9 % (11.5-15.2) 09/26/18 19:30 Plt Count 274 10^3/uL (150-400) 09/26/18 19:30 MPV 8.6 fL (8.7-11.7) L 09/26/18 19:30 Neut % (Auto) 70.2 % (39.3-74.2) 09/26/18 19:30 Lymph % (Auto) 17.6 % (15.0-45.0) 09/26/18 19:30 Bosque % (Auto) 10.2 % (4.5-13.0) 09/26/18 19:30 Eos % (Auto) 1.2 % (0.6-7.6) 09/26/18 19:30 Baso % (Auto) 0.4 % (0.3-1.7) 09/26/18 19:30 Nucleat RBC Rel Count 0.0 % (0.0-0.2) 09/26/18 19:30 Absolute Neuts (auto) 5.43 10^3/uL (1.70-6.50) 09/26/18 19:30 Absolute Lymphs (auto) 1.36 10^3/uL (1.00-3.00) 09/26/18 19:30 Absolute Monos (auto) 0.79 10^3/uL (0.30-0.80) 09/26/18 19:30 Absolute Eos (auto) 0.09 10^3/uL (0.03-0.40) 09/26/18 19:30 Absolute Basos (auto) 0.03 10^3/uL (0.02-0.10) 09/26/18 19:30 Absolute Nucleated RBC 0.00 10^3/uL (0-0.01) 09/26/18 19:30 Immature Gran % 0.4 % (0.0-1.1) 09/26/18 19:30 Immature Gran # 0.03 10^3/uL (0.00-0.10) 09/26/18 19:30 PT 12.7 SEC (12.0-15.0) 09/26/18 19:30 INR 0.99 (0.83-1.16) 09/26/18 19:30 POC Sodium 139 mEq/L (135-145) 09/26/18 19:39 Sodium 138 mEq/L (135-145) 09/27/18 09:20 POC Potassium 5.2 mEq/L (3.3-5.0) H 09/26/18 19:39 Potassium 4.4 mEq/L (3.5-5.2) 09/27/18 09:20 POC Chloride 104 mEq/L (97-110) 09/26/18 19:39 Chloride 107 mEq/L (97-110) 09/27/18 09:20 Carbon Dioxide 22 mEq/l (22-31) 09/27/18 09:20 POC Total CO2 26 mEq/L (22-31) 09/26/18 19:39 Anion Gap 9 mEq/L (6-14) 09/27/18 09:20 POC BUN 45 mg/dL (7-23) H 09/26/18 19:39 BUN 35 mg/dL (7-23) H 09/27/18 09:20 Creatinine 0.9 mg/dL (0.7-1.3) 09/27/18 09:20 POC Creatinine 1.2 mg/dL (0.7-1.3) 09/26/18 19:39 Estimated GFR > 60 09/27/18 09:20 Glucose 108 mg/dL (70-100) H 09/27/18 09:20 POC Glucose 81 mg/dL (70-100) 09/26/18 19:39 Calcium 9.0 mg/dL (8.5-10.4) 09/27/18 09:20 POC Troponin I 0.01 ng/mL (0.00-0.08) 09/26/18 19:40 Triglycerides 121 mg/dL (40-150) 09/27/18 04:35 Cholesterol 135 mg/dL (140-220) L 09/27/18 04:35 Cholesterol Risk Factr 0.4 (0.2-1.0) 09/27/18 04:35 LDL Cholesterol, Calc 44 mg/dL (80-100) L 09/27/18 04:35 LDL Risk Factor 0.4 (0.2-1.0) 09/27/18 04:35 VLDL Cholesterol 24 mg/dL (8-25) 09/27/18 04:35 Non-HDL Cholesterol 68 mg/dL (90-129) L 09/27/18 04:35 HDL Cholesterol 67 mg/dL (40-65) H 09/27/18 04:35 LDL/HDL Ratio 0.65 RATIO (1.00-3.64) L 09/27/18 04:35 Cholesterol/HDL Ratio 2.01 RATIO (1.00-4.97) 09/27/18 04:35 Urine Color YELLOW 09/26/18 20:00 Urine Appearance CLEAR 09/26/18 20:00 Urine pH 5.0 (5.0-7.5) 09/26/18 20:00 Ur Specific Ruby 1.029 (1.002-1.030) 09/26/18 20:00 Urine Protein NEGATIVE (NEGATIVE) 09/26/18 20:00 Urine Ketones NEGATIVE (NEGATIVE) 09/26/18 20:00 Urine Blood NEGATIVE (NEGATIVE) 09/26/18 20:00 Urine Nitrate NEGATIVE (NEGATIVE) 09/26/18 20:00 Urine Bilirubin NEGATIVE (NEGATIVE) 09/26/18 20:00 Urine Urobilinogen NEGATIVE EU (0.2-1.0) 09/26/18 20:00 Ur Leukocyte Esterase NEGATIVE (NEGATIVE) 09/26/18 20:00 Urine RBC NONE SEEN /hpf (0-3) 09/26/18 20:00 Urine WBC 1-3 /hpf (0-3) 09/26/18 20:00 Ur Epithelial Cells NONE SEEN /lpf (NONE-1+) 09/26/18 20:00 Urine Glucose NEGATIVE (NEGATIVE) 09/26/18 20:00 A/P Assessment: 83yo M with: -CAD -ischemic cardiomyopathy -sp DC ICD implant -stroke, suspect embolic -paroxysmal atrial fibrillation Plan: At this stage, I would recommend stopping plavix and starting eliquis 5mg bid for treatment of AFib-related stroke risk (CHADS2-VASc=5). Continue aspirin and statin. Recommend adding metoprolol 12.5mg bid. He should followup with Dr Stinson in the [facility] in 2-4 weeks post discharge. Complex discussion lasting >30 minutes with Mr Daley and his (by phone), with >50% of the time dedicated to patient education.
--- NOTE | 2018-09-28 11:33 | ASMTCMCOM ---
CM Note CM Note Notes: Met with patient, , and daughter to explain rehab referral process. Therapies currently recommending acute inpatient rehab. I explained that we need to assess two factors - bed availability and insurance authorization - before patient can go to an acute IPR. Pending that those two factors are positive, family would like [facility] IPR. If either factor presents an issue, family would like to consider SNF, likely [facility], due to geographic location. I will follow up with [facility] I[facility] tomorrow since that is the recommendation of team right now and the desire of family. Date Signed: 09/28/2018 11:32 AM Electronically Signed By:Marcela Guajardo RN
[2018-09-28] MEDS: APIXABAN 5 MG TAB PO SCH ×2 (11:45→21:21)
--- NOTE | 2018-09-28 14:03 | HOSPPROG ---
Hospitalist Progress Note Assessment/Plan: 83 year old male with pmh of cad, CHF admitted for concerns of a CVA. Right sided weakness- Not able to get MRI, CT negative. Echo this am with LVEF of 25% with global hypokinesis. Case discussed with neurology who feels this could be a CVA 2/2 to thrombus from left atrial appendage vs thromboembolic from low EF. Recommends JUSTIN. discussed with cardiology who is uncertain JUSTIN would be of benefit, but agreed to consult. -cont telemetry -cardiology consulted, started on eliquis -stop plavix, cont asa -cards to consult -PT/OT afib- No hx of this, cardiology consulted who interrogated his pacer, and afib was found. Started on eliquis given CVA. CHADS is 6. -already on toprol xl, -cards recommending metoprolol 12.5 bid, need to clarify if they wanted to switch from toprol to lopressor. CHF- hx of CHF, cad with stents, echo today wtih LVEF of 25%. on entresto, asa, statin, bb. Cont all of these CAD- on toprol, statin, entresto cognitive impairment- cont NMDA Hypothyroid- synthroid PPX- SCDs, Plavix, asa Fluids- PO Lytes- WNL Nutrition- regular Cor- DNR Dispo- inpatient for cva. PT recommending inpatient rehab, CM working on it. Subjective: no complaints. still some right sided weakness. Objective: Vital Signs Temp Pulse Resp BP Pulse Ox 36.6 C 65 18 99/68 L 92 09/28/18 11:05 09/28/18 11:05 09/28/18 11:05 09/28/18 11:05 09/28/18 11:05 09/27/18 09/28/18 09/29/18 05:59 05:59 05:59 Intake Total 1500 Balance 1500 PT 12.7 SEC (12.0-15.0) 09/26/18 19:30 INR 0.99 (0.83-1.16) 09/26/18 19:30 - Physical Exam Constitutional: no apparent distress, appears nourished, not in pain Eyes: PERRL, anicteric sclera, EOMI Ears, Nose, Mouth, Throat: moist mucous membranes, hearing normal, ears appear normal, no oral mucosal ulcers Cardiovascular: regular rate and rhythym, no murmur, rub, or gallop Respiratory: no respiratory distress, no rales or rhonchi, clear to auscultation Gastrointestinal: normoactive bowel sounds, soft, non-tender abdomen, no palpable masses Genitourinary: no bladder fullness, no bladder tenderness, no renal bruits Skin: no rashes or abrasions, no fluctuance, no induration Musculoskeletal: full muscle strength, no muscle tenderness, normal joint ROM Neurologic: AAOx3, sensation intact bilaterally Psychiatric: interacting appropriately, not anxious, not encephalopathic, thought process linear Lymph, Heme, Immunologic: no cervical LAD, no supraclavicular LAD ICD10 Worksheet Patient Problems: Problems Problem Status Onset Acute ischemic stroke Acute Right sided weakness Acute
--- NOTE | 2018-09-28 15:06 | NEUROPROG ---
Assessment: 1. Query right cerebellar hemisphere stroke 2. Paroxysmal atrial fibrillation The patient's right upper extremity dysmetria has improved today, fortunately. I appreciate Cardiology input. They interrogated his ICD and found multiple runs of brief paroxysmal atrial fibrillation, rate controlled (per their report) . Therefore, JUSTIN is no longer needed. Nor is any ECG monitoring. Therefore, based on this presumptive cerebral infarction and this ECG finding, he would be a candidate for oral anticoagulation. This was discussed with the patient at length by Cardiology. Plavix will be discontinued , and he will be on Eliquis. He understands potential risks, benefits and alternatives of oral anticoagulation including the risk of fatal hemorrhage or hemorrhage associated with significant morbidity. He will be considered for disposition by therapies. He will follow-up with cardiology as an outpatient. No further recommendations. We will sign off and follow up as needed. Please do not hesitate to call there are any questions or changes in this patient's neurologic status. Subjective: No new symptoms Feels better Objective: Vital Signs Temp Pulse Resp BP Pulse Ox 36.6 C 65 18 99/68 L 92 09/28/18 11:05 09/28/18 11:05 09/28/18 11:05 09/28/18 11:05 09/28/18 11:05 09/27/18 09/28/18 09/29/18 05:59 05:59 05:59 Intake Total 1500 Balance 1500 PT 12.7 SEC (12.0-15.0) 09/26/18 19:30 INR 0.99 (0.83-1.16) 09/26/18 19:30 Awake and alert [id number] is now fairly symmetric from right to left. The dysmetria in the right upper extremity has essentially resolved 35 total minutes floor time; over 50% counseling and coordination of care. Allergies/Adverse Reactions: No Known Allergies Allergy (Unverified 09/26/18 19:28)
[2018-09-28] MEDS: DONEPEZIL HCL 5 MG TAB PO SCH (17:35)
[2018-09-28] MEDS: CHOLECALCIFEROL VIT D3 1,000 UNITS TAB PO SCH (17:35)
[2018-09-28] MEDS: ATORVASTATIN CALCIUM 40 MG TAB PO SCH (17:35)
[2018-09-28] MEDS: DULoxetine 30 MG CAP PO SCH (17:35)
[2018-09-28] MEDS: PRESERVISION AREDS2 FORMULA EYE VIT 1 EACH PO SCH (17:35)
[2018-09-28] MEDS: FERROUS SULFATE 325 MG TAB PO SCH (18:48)
[2018-09-28] MEDS: GABAPENTIN 300 MG CAP PO SCH (21:21)
[2018-09-29] MEDS: LEVOTHYROXINE 75 MCG TAB PO SCH (06:54)
[2018-09-29] MEDS: ASPIRIN 81 MG CHEWABLE TAB PO SCH (08:38)
[2018-09-29] MEDS: APIXABAN 5 MG TAB PO SCH ×2 (08:38→20:13)
[2018-09-29] MEDS: METOPROLOL SUCCINATE XR 25 MG TAB PO SCH (08:39)
[2018-09-29] MEDS: MEMANTINE HCL 5 MG TAB PO SCH ×2 (08:39→20:13)
[2018-09-29] MEDS: SACUBITRIL/VALSARTAN 24/26MG 1 EA TAB PO SCH ×2 (08:49→20:09)
[2018-09-29] MEDS: CALCIUM CITRATE PO SCH ×2 (09:25→20:16)
[2018-09-29] MEDS: VITAMIN D3 PO SCH ×2 (09:25→20:16)
--- NOTE | 2018-09-29 10:13 | ASMTCMCOM ---
CM Note CM Note Notes: Inpatient rehab states patient is eligible for the program if insurance auth comes through.D/C plan is inpatient rehab pending insurance authorization. CM will follow. Date Signed: 09/29/2018 10:12 AM Electronically Signed By:Angelina Aguiar LCSW
--- NOTE | 2018-09-29 15:30 | HOSPPROG ---
Hospitalist Progress Note Assessment/Plan: 83 year old male with pmh of cad, CHF admitted for concerns of a CVA. Right sided weakness- Not able to get MRI, CT negative. Echo this am with LVEF of 25% with global hypokinesis. Case discussed with neurology who feels this could be a CVA 2/2 to thrombus from left atrial appendage vs thromboembolic from low EF. Recommends JUSTIN. discussed with cardiology who is uncertain JUSTIN would be of benefit, but agreed to consult. -cont telemetry -cardiology consulted, started on eliquis -stop plavix, cont asa -cards to consult -PT/OT afib- No hx of this, cardiology consulted who interrogated his pacer, and afib was found. Started on eliquis given CVA. CHADS is 6. -already on toprol xl, -cont toprol CHF- hx of CHF, cad with stents, echo today wtih LVEF of 25%. on entresto, asa, statin, bb. Cont all of these CAD- on toprol, statin, entresto cognitive impairment- cont NMDA Hypothyroid- synthroid PPX- SCDs, Plavix, asa Fluids- PO Lytes- WNL Nutrition- regular Cor- DNR Dispo- inpatient for cva. PT recommending inpatient rehab, CM working on it. Subjective: feeling better. eager to start rehab. Objective: Vital Signs Temp Pulse Resp BP Pulse Ox 36.3 C 81 25 H 112/76 91 L 09/29/18 12:00 09/29/18 12:00 09/29/18 12:00 09/29/18 12:00 09/29/18 12:00 09/28/18 09/29/18 09/30/18 05:59 05:59 05:59 Intake Total 1500 300 Balance 1500 300 PT 12.7 SEC (12.0-15.0) 09/26/18 19:30 INR 0.99 (0.83-1.16) 09/26/18 19:30 - Physical Exam Constitutional: no apparent distress, appears nourished, not in pain Eyes: PERRL, anicteric sclera, EOMI Ears, Nose, Mouth, Throat: moist mucous membranes, hearing normal, ears appear normal, no oral mucosal ulcers Cardiovascular: regular rate and rhythym, no murmur, rub, or gallop Respiratory: no respiratory distress, no rales or rhonchi, clear to auscultation Gastrointestinal: normoactive bowel sounds, soft, non-tender abdomen, no palpable masses Genitourinary: no bladder fullness, no bladder tenderness, no renal bruits Skin: no rashes or abrasions, no fluctuance, no induration Musculoskeletal: full muscle strength, no muscle tenderness, normal joint ROM Neurologic: AAOx3, sensation intact bilaterally Psychiatric: interacting appropriately, not anxious, not encephalopathic, thought process linear Lymph, Heme, Immunologic: no cervical LAD, no supraclavicular LAD ICD10 Worksheet Patient Problems: Problems Problem Status Onset Acute ischemic stroke Acute Right sided weakness Acute
[2018-09-29] MEDS: ATORVASTATIN CALCIUM 40 MG TAB PO SCH (18:05)
[2018-09-29] MEDS: DONEPEZIL HCL 5 MG TAB PO SCH (18:05)
[2018-09-29] MEDS: CHOLECALCIFEROL VIT D3 1,000 UNITS TAB PO SCH (18:05)
[2018-09-29] MEDS: PRESERVISION AREDS2 FORMULA EYE VIT 1 EACH PO SCH (18:05)
[2018-09-29] MEDS: FERROUS SULFATE 325 MG TAB PO SCH (18:06)
[2018-09-29] MEDS: DULoxetine 30 MG CAP PO SCH (18:06)
[2018-09-29] MEDS: GABAPENTIN 300 MG CAP PO SCH (20:13)
[2018-09-30] MEDS: MEMANTINE HCL 5 MG TAB PO SCH (08:20)
[2018-09-30] MEDS: APIXABAN 5 MG TAB PO SCH (08:20)
[2018-09-30] MEDS: ASPIRIN 81 MG CHEWABLE TAB PO SCH (08:21)
[2018-09-30] MEDS: CALCIUM CITRATE PO SCH (08:25)
[2018-09-30] MEDS: VITAMIN D3 PO SCH (08:25)
[2018-09-30] MEDS: SACUBITRIL/VALSARTAN 24/26MG 1 EA TAB PO SCH (10:06)
[2018-09-30] MEDS: LEVOTHYROXINE 75 MCG TAB PO SCH (10:06)
[2018-09-30] MEDS: METOPROLOL SUCCINATE XR 25 MG TAB PO SCH (10:07)
--- NOTE | 2018-09-30 11:56 | PDIAF ---
- Diagnosis Code Status: Do Not Resuscitate - Medication Management Discharge Medications: electronically signed and located in the Home Medication List. - Orders Services needed: Physical Therapy, Occupational Therapy Diet Recommendation: no restrictions on diet Diet Texture: Regular Texture Diet Additional Instructions: Activity as tolerated. Follow up with your primary care doctor as soon as able. - Follow Up Care Current Providers and Referrals: Kamilla Gomez MD [Primary Care Provider] - As per Instructions
[2018-09-30 11:59] VITALS: BP 100/58
--- NOTE | 2018-09-30 14:55 | ASMTDCNOTE ---
Case Management Discharge Discharge Order Complete? Answers: Yes Patient to Obtain Answers: Other Notes: Inpatient rehab Medications Transportation Arranged Answers: Other Notes: Program in hospital currently Faxed Final Orders Answers: Yes Notes: [facility] Inpatient Rehab Agency/Facility Transfer Answers: Yes Notes: [facility] Inpatient rehab Report Printed & Faxed to Receiving Agency Family Notified Answers: Yes Notes: , Malini Discharge Comments Notes: Patient is discharging to [facility] Inpatient Rehab today. Discharge summaries have been Allscripted to them. Transport is walking to as the program is currently in the hospital. Malini, patient's will accompany him for admission. Nurse to nurse called by Katelyn patient's nurse. No further needs. Date Signed: 09/30/2018 02:54 PM Electronically Signed By:Angelina Aguiar LCSW
--- NOTE | 2018-09-30 14:56 | ASMTLACE ---
LACE Length of stay for Answers: 3 days current admission Acuity / Level of Answers: Yes Care: Did the patient have an inpatient admission? Comorbidities - select Answers: Coronary Artery Disease all that apply History of falls # of Emergency department Answers: 1-2 visits in the last 6 months Score: 12 Date Signed: 09/30/2018 02:55 PM Electronically Signed By:Angelina Aguiar LCSW
--- NOTE | 2018-09-30 15:05 | ASDISCHSUM ---
Discharge Information Plan Status:Inpatient Rehab Medically Cleared to Leave:09/30/2018 Discharge Date:09/30/2018 CM D/C Disposition:[facility] IP ADT D/C Disposition:[facility] IP Projected Discharge Date:09/30/2018 11:00 AM Transportation at D/C:Other Discharge Delay Reason: Follow-Up Date:09/30/2018 11:00 AM Discharge Slot:2 - 12:01 pm - 18:00 pm Final Diagnosis:Acute ischemic stroke Placement Information Referral Type:*[facility]/SNF Referral ID:[id number] Provider Name: Address 1: Phone Number: Address 2: Fax Number: City: Selection Factors: State: Referral Type:Rehabilitation Hospital Referral ID:[id number] Provider Name:[facility] Inpatient Re[facility] Address 1:[address] [place] [address] Phone Number: Address 2: Fax Number: [facility]:[place] Selection Factors: State:[place] Patient Contact Information Contact Name:MARLENY Relationship: Address:[address] [place] [address] City:[place] Alternate Phone: State/Zip Code:[place] [address] Email: Financial Information Financial Class:Medicare Advantage Plans Primary Plan Desc:[facility] [employer] Primary Plan Number:[id number] Secondary Plan Desc: Secondary Plan Number: Assessment Information LACE LACE Length of stay for Answers: 3 days current admission Acuity / Level of Answers: Yes Care: Did the patient have an inpatient admission? Comorbidities - select Answers: Coronary Artery Disease all that apply History of falls # of Emergency department Answers: 1-2 visits in the last 6 months Score: 12 Date Signed: 09/30/2018 02:55 PM Electronically Signed By:Angelina Aguiar LCSW [facility] CM Progress Note CM Note CM Note Notes: Pt in with CVA and reports multiples falls, pt normally active. Pt resides independently with . OT rec inpatient rehab, the consult order is in. PT/OT/inpatient rehab evals are TBD. D/c plan is TBD Date Signed: 09/27/2018 02:29 PM Electronically Signed By:MICKY Chi [facility] CM Progress Note CM Note CM Note Notes: Met with patient, , and daughter to explain rehab referral process. Therapies currently recommending acute inpatient rehab. I explained that we need to assess two factors - bed availability and insurance authorization - before patient can go to an acute IPR. Pending that those two factors are positive, family would like [facility] IPR. If either factor presents an issue, family would like to consider SNF, likely [facility], due to geographic location. I will follow up with [facility] IPR tomorrow since that is the recommendation of team right now and the desire of family. Date Signed: 09/28/2018 11:32 AM Electronically Signed By:Marcela Guajardo RN [facility] CM Progress Note CM Note CM Note Notes: Inpatient rehab states patient is eligible for the program if insurance auth comes through.D/C plan is inpatient rehab pending insurance authorization. CM will follow. Date Signed: 09/29/2018 10:12 AM Electronically Signed By:Angelina Aguiar LCSW Case Management Discharge Plan Note Case Management Discharge Discharge Order Complete? Answers: Yes Patient to Obtain Answers: Other Notes: Inpatient rehab Medications Transportation Arranged Answers: Other Notes: Program in hospital currently Faxed Final Orders Answers: Yes Notes: [facility] Inpatient Rehab Agency/Facility Transfer Answers: Yes Notes: [facility] Inpatient rehab Report Printed & Faxed to Receiving Agency Family Notified Answers: Yes Notes: , Malini Discharge Comments Notes: Patient is discharging to [facility] Inpatient Rehab today. Discharge summaries have been Allscripted to them. Transport is walking to as the program is currently in the hospital. Malini, patient's will accompany him for admission. Nurse to nurse called by Katelyn patient's nurse. No further needs. Date Signed: 09/30/2018 02:54 PM Electronically Signed By:Angelina Aguiar LCSW Intervention Information Intervention Type:*IM-Signed Date of Service:09/30/2018 02:05 PM Patient Type:Inpatient Staff Member:Cher Mcmahan Hours: Discipline: Severity: Comment:
--- NOTE | 2018-09-30 16:21 | PDDCSUM ---
Discharge Summary Discharge Summary: Discharge diagnosis Right-sided weakness Likely acute CVA/TIA Paroxysmal atrial fibrillation Congestive heart failure Coronary artery disease Cognitive impairment Hypothyroid The patient is an 83-year-old male who presents to the emergency room with complaints of right-sided weakness. CT head was negative and CTA head and neck were also negative for any acute CVA. The patient was unable to undergo an MRI due to the present an ICD. Neurology was consulted who was concerned about thromboembolic cause for his symptoms. A TTE was obtained which showed a left ventricular ejection fraction of 25%. Cardiology was consulted for consideration of a transesophageal echocardiogram and for evaluation of the possible need for anticoagulation. Cardiology was able to interrogate his pacemaker which found multiple events of paroxysmal atrial fibrillation. This bypass the need for transesophageal echocardiogram. He was started on Eliquis 5 mg twice daily for anticoagulation in the setting of paroxysmal atrial fibrillation which likely precipitated his CVA. He was seen by PT and OT who recommended inpatient rehab. He was discharged to [facility] inpatient rehab for aggressive rehabilitation. Disposition Inpatient rehab New medications Eliquis 5 mg twice daily I spent over 30 min on the discharge of this patient
[2018-10-01] MEDS ORDERED: METOPROLOL SUCCINATE XR 25 MG TAB PO SCH (09:00)
--- NOTE | 2018-10-04 08:55 | CPEKG ---
Test Reason : OPEN Blood Pressure : / mmHG Vent. Rate : 056 BPM Atrial Rate : 056 BPM P-R Int : 189 ms QRS Dur : 129 ms QT Int : 487 ms P-R-T Axes : 053 -63 160 degrees QTc Int : 471 ms Sinus rhythm Left bundle branch block Confirmed by Cali Daniel ([id number]) on 10/04/2018 8:55:19 AM Referred By: Cali Daniel Confirmed By:Cali Daniel
== END 2018-09-30 15:11 | DRG 65 ==
LOC: F3N 21:11 → OBSVTOIN 09-27 11:43
PROVIDERS: ADMIT Internal Medicine; ATTEND Internal Medicine
DX: I63.9 Cerebral infarction, unspecified (principal); G81.91 Hemiplegia, unspecified affecting right dominant side; I48.0 Paroxysmal atrial fibrillation; I50.22 Chronic systolic (congestive) heart failure; I25.10 Atherosclerotic heart disease of native coronary artery without angina pectoris; E03.9 Hypothyroidism, unspecified; G31.84 Mild cognitive impairment of uncertain or unknown etiology; E86.9 Volume depletion, unspecified; R29.6 Repeated falls; E78.5 Hyperlipidemia, unspecified; R27.0 Ataxia, unspecified; Z66 Do not resuscitate; Z95.810 Presence of automatic (implantable) cardiac defibrillator
CPT/HCPCS: 82435-PO; 82565-PO; 82947-PO; 84132-PO; 84295-PO; 84484-ER; 84520-PO; 85014-ER; 92507-GN; 92523-GN; 97110-GP; 97112-GO; 97116-GP; 97162-GP; 97166-GO; 97530-GP; 97535-GO; Q9957; Q9967

== ENCOUNTER 2018-09-30 15:19 | Inpatient (IN) | payer OTHER ==
[2018-09-30] MEDS ORDERED: OXYCODONE/APAP 5/325 TAB PO PRN (16:00)
[2018-09-30] MEDS ORDERED: ACETAMINOPHEN 325 MG TAB PO PRN (16:14)
--- NOTE | 2018-09-30 17:24 | GHP ---
[f rep st] HISTORY AND PHYSICAL POST ADMISSION PHYSICIAN EVALUATION AND REHABILITATION TREATMENT PLAN. DATE OF ADMISSION: 09/30/2018 DATE OF EVALUATION: 09/30/2018. TIME OF EVALUATION: 1530. REFERRING FACILITY: [facility]. REFERRING PHYSICIAN: Yessi Jo MD IMPAIRMENT GROUP: 1.2. CONSULTING PHYSICIANS: Neurologist, Dr. Teodoro Leger, and gang leader, Dr. Jay Quintanilla. ADMISSION DIAGNOSIS: Debility, status post cerebrovascular accident. ETIOLOGIC DIAGNOSIS: Right body involvement (left brain). HISTORY OF PRESENT ILLNESS: This patient was admitted to [facility] on 09/26/2018 with falls. He had 2-3 falls on the day of admission. He fell onto his right side. He had loss of peripheral vision on the right side. He was brought to the hospital. An MRI could not be obtained due to his cardiac pacemaker and implanted cardiac defibrillator. CT angiogram showed noncritical stenosis with the bilateral carotid arteries. Head CT showed no acute findings. He was seen by Neurology and diagnosed with a CVA, which was thought likely to be due to a thrombus from the left atrial appendage versus thromboembolic with a cardiac source due to his low ejection fraction. Cardiology interrogated his pacemaker, and he was found to have had Afib. He was placed on apixaban. He had been on clopidogrel, which was discontinued. He was continued on aspirin. He was already on a statin, and his cardiac medications included metoprolol extended release, which was appropriate for rate control. LABS AND STUDIES DURING HIS STAY: CBC showed slight anemia initially with a hemoglobin of 13.4 and 39.8, though a 2nd draw later that day showed normal hemoglobin and hematocrit at 13.9 and 41. Otherwise, a CBC was overall within normal limits. PT and INR were normal. Serum chemistry initially showed hyponatremia and hyperkalemia with a sodium of 134 and a potassium of 5.5. He also had some dehydration with a BUN of 53 and a creatinine of 1.1. Over the course of the next day, his electrolytes normalized to a sodium of 138 and a potassium of 4.4. BUN was 35 and creatinine 0.9. A lipid panel showed triglycerides of 121, cholesterol at 135, LDL at 44, and HDL of 67. Urinalysis was completely normal. Echocardiogram showed dilated left ventricle with a severely reduced left ventricular ejection fraction, visually estimated at 25%. There was global hypokinesis and multiple focal wall motion abnormalities. There was no thrombus identified in the left ventricle. There was mild concentric left ventricular hypertrophy. There was diastolic dysfunction. Right ventricle function was normal. He had a severely dilated left atrium and a mildly dilated right atrium. There was moderate mitral regurgitation, mild aortic regurgitation, mild aortic stenosis, mild tricuspid regurgitation, and trivial pulmonic regurgitation. ACTIVE COMORBIDITIES. There are no tier 1, tier 2, or tier 3 comorbidities. PAST MEDICAL HISTORY: 1. Coronary artery disease. 2. CHF with dilated cardiomyopathy. 3. Cognitive impairment. 4. Hearing loss. 5. Scoliosis. PAST SURGICAL HISTORY: He has had stenting of his coronary arteries. He has had placement of a pacemaker and ICD. He has had a lumbar laminectomy. MEDICATIONS: Prior to admission: 1. Aspirin 81 mg p.o. daily. 2. Calcium. 3. Vitamin D3. 4. Atorvastatin 40 mg daily. 5. Donepezil 10 mg daily. 6. Memantine 10 mg twice daily. 7. Iron sulfate. 8. Cymbalta 10 mg daily. 9. Sacubitril/valsartan 26/26 mg twice daily. 10. Metoprolol 37.5 mg p.o. daily. 11. Percocet p.r.n. 12. Levothyroxine 75 mcg daily. 13. Gabapentin 300 mg q.h.s. Admission medications: 1. Apixaban 5 mg p.o. twice daily. 2. Aspirin 81 mg p.o. daily. 3. Atorvastatin 40 mg p.o. daily at 1800. 4. PreserVision vitamins 1 p.o. daily. 5. Calcium citrate/vitamin D3 one p.o. twice daily. 6. Cholecalciferol 400 units p.o. daily at 1800. 7. Donepezil 10 mg daily at 1800. 8. Duloxetine 30 mg p.o. daily at 1800. 9. Gabapentin 300 mg q.h.s. 10. Levothyroxine 75 mcg daily at 0600. 11. Memantine 10 mg twice daily. 12. Metoprolol extended release 37.5 mg daily. 13. Oxycodone/acetaminophen 1/4 to 1/2 tablet q.4-6 hours p.r.n. 14. Sacubitril/valsartan 24/26 mg 1 p.o. twice daily. ALLERGIES: There are no known drug allergies. SOCIAL HISTORY: He is . He lives with his . He and his each [place] 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 He is a nonsmoker and nondrinker. 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 His manages finances. There is 1 step to enter the house. FAMILY HISTORY: Noncontributory. REVIEW OF SYSTEMS: He is aware of a right visual deficit. He denies weakness or loss of sensation. He denies difficulty swallowing. He denies headache. He denies numbness or tingling of the extremities. He has a good appetite. He has not had weight loss. There is no nausea, vomiting, constipation, or diarrhea. He recently had an incontinent episode of stool x1. He has had recent falls, as in the HPI. He has no dysuria or urinary frequency. There is no joint swelling or joint pain. There is no rash or skin breakdown. Otherwise , a 10-point review of systems is negative. PHYSICAL EXAMINATION: VITALS: Not yet available in the chart. Today at the hospital, just before noon, blood pressure was 100/58, heart rate was 58, respiratory rate was 14, oxygen saturation was 95% on room air, temperature was 36.6 degrees centigrade, and his weight was 65.8 kg for a body mass index of 23.4. GENERAL: This is a well-nourished, well-developed man with kyphoscoliosis, sitting on the edge of the bed, dressed in street clothes, cooperative, and in no acute distress. HEENT: Extraocular movements are intact. Pupils are equal, round, and reactive to light. Mucous membranes are moist. Dentition is in good condition. He has an uncrowded airway, Mallampati class 1. NECK: Supple. HEART: There is a regular rate and rhythm. Heart sounds are quite distant. There is no JVD. LUNGS: Clear to auscultation bilaterally. ABDOMEN: Soft, nontender, nondistended with normoactive bowel sounds, and no hepatosplenomegaly. EXTREMITIES: There is no cyanosis, clubbing , or edema. Radial pulses are 2+ bilaterally. Pedal pulses are diminished. NEUROLOGIC: He is alert and oriented x3. Cranial nerves 2-12 are grossly intact. Motor strength overall is 5/5, but his left hamstring strength is 4/5. Sensation is intact to light touch. He is able to arise from seated to a front-wheeled walker without assistance, and he ambulates with a slightly wide base and a somewhat shuffling gait. Visual isaac by confrontation show a deficit in the right lower visual field. There is minimal left pronator drift. Rapid alternating movements are normal, and [id number] testing is smooth and not dysmetric. CURRENT LEVEL OF FUNCTION, per the preadmission screen. he was on a regular diet. For grooming, he needed minimal assist to scan to the right side to locate items. Bathing required minimal assist for shower transfer and then verbal cues for bathing. Dressing was done with minimal assist to don socks. He required setup and standby assist for upper body dressing. Toileting was done with contact guard assist to stand at the toilet to void. He was continent of bladder. Bed mobility required moderate assistance. Transfers required contact guard assist. He was mildly retropulsive with a slight lean to the right side. He used a front-wheeled walker. Regarding balance, he was noted to list to the right side and require contact guard assist and cues. Endurance was fair to good. He was able to ambulate 150 feet with a front- wheeled walker. He required minimal assist and cues to lift his shuffling feet and to maintain an upright posture. Regarding communication, he was noted to have impaired auditory comprehension. Regarding cognition, he was noted to have decreased right-sided awareness and visual neglect. He had impaired attention, problem solving, memory, insight, and visuospatial processing. On today's exam, there are no significant changes from the preadmission screen. IMPRESSION: This is an 83-year-old man with dilated cardiomyopathy who suffered a cerebrovascular accident, likely of the left posterior circulation. He was seen by Neurology. No MRI could be obtained due to his pacemaker/ICD. Pacemaker was interrogated, and he was found to have atrial fibrillation. He was begun on apixaban, and clopidogrel was discontinued. He was continued on medications for dyslipidemia and congestive heart failure. There was low blood pressure noted. He was otherwise medically stabilized and appropriate for inpatient rehabilitation. His goal is to complete a rehabilitation stay and then return home with his and supportive services. For a safe discharge, he will need to advance to supervision to modified independent level with self-care and mobility using the least restrictive device. He will need to demonstrate safety using compensatory strategies to carry out daily functions. He will likely require support from family for household duties. He will have therapy with Physical Therapy, Occupational Therapy, and Speech and Language Pathology for 60 minutes per day for each discipline on 5-7 days of the week. His duration of stay is estimated to be 12-14 days. It is anticipated that upon discharge, he will benefit from home health services with Speech and Language Pathology and Physical Therapy. Additionally , he may benefit from a stroke support group. PLAN: 1. Cerebrovascular accident with impaired balance, activities of daily living and visual field deficit. PT and OT to optimize mobility and activities of daily living toward the modified independent or independent level. 2. Cognitive impairment was pre-existing. He will have assessment and treatment per Speech and Language Pathology to optimize his cognition towards baseline. Continue memantine and donepezil. His was not sure if these medications had helped his memory. 3. Secondary prophylaxis of cerebrovascular accident. He is on apixaban for atrial fibrillation or possible thromboembolism originating in the dilated ventricle or dilated left atrium. Continue blood pressure control and continue statin. 4. Congestive heart failure with dilated cardiomyopathy. Continue metoprolol and sacubitril/valsartan. Appears compensated. 5. Kyphoscoliosis. He may benefit from physical therapy interventions. He has Percocet ordered at very small doses in case he has pain. I will also order acetaminophen. Continue cholecalciferol and calcium supplementation. 6. Blood pressure control. He has had low blood pressures in the hospital but denies any symptoms. He will be monitored. Consider checking orthostatics. Continue his antihypertensive medications at present. 8. Prophylaxis: Apixaban will suffice for DVT prophylaxis. 9. Followup: He will see his primary care provider, Dr. Kamilla Gomez, in followup. /[id number]/MODL MTDD
[2018-09-30] MEDS: CHOLECALCIFEROL VIT D3 1,000 UNITS TAB PO SCH (17:41)
[2018-09-30] MEDS: DULoxetine 30 MG CAP PO SCH (17:41)
[2018-09-30] MEDS: DONEPEZIL HCL 5 MG TAB PO SCH (17:41)
[2018-09-30] MEDS: PRESERVISION AREDS2 FORMULA EYE VIT 1 EACH PO SCH (17:41)
[2018-09-30] MEDS: ATORVASTATIN CALCIUM 40 MG TAB PO SCH (17:42)
[2018-09-30] MEDS: SACUBITRIL/VALSARTAN 24/26MG 1 EA TAB PO SCH (20:14)
[2018-09-30] MEDS: MEMANTINE HCL 5 MG TAB PO SCH (20:14)
[2018-09-30] MEDS: GABAPENTIN 100 MG CAP PO SCH (20:14)
[2018-09-30] MEDS: CALCIUM CARB W/VIT D 500 MG TAB PO SCH (20:14)
[2018-09-30] MEDS: APIXABAN 5 MG TAB PO SCH (21:27)
[2018-10-01] MEDS: LEVOTHYROXINE 75 MCG TAB PO SCH (05:45)
[2018-10-01] MEDS: ASPIRIN 81 MG CHEWABLE TAB PO SCH (09:37)
[2018-10-01] MEDS: APIXABAN 5 MG TAB PO SCH ×2 (09:37→20:19)
[2018-10-01] MEDS: METOPROLOL SUCCINATE XR 25 MG TAB PO SCH (09:37)
[2018-10-01] MEDS: CALCIUM CARB W/VIT D 500 MG TAB PO SCH ×2 (09:37→20:19)
[2018-10-01] MEDS: MEMANTINE HCL 5 MG TAB PO SCH ×2 (09:38→20:19)
[2018-10-01] MEDS: SACUBITRIL/VALSARTAN 24/26MG 1 EA TAB PO SCH ×2 (09:38→20:19)
--- NOTE | 2018-10-01 10:27 | SOAPPROG ---
SOAP Progress Note Assessment/Plan: Assessment: Cerebrovascular accident with impaired balance, activities of daily living and visual field deficit. PT and OT to optimize mobility and activities of daily living toward the modified independent or independent level. Cognitive impairment was pre-existing. He will have assessment and treatment per Speech and Language Pathology to optimize his cognition towards baseline. Continue memantine and donepezil. His was not sure if these medications had helped his memory. Secondary prophylaxis of cerebrovascular accident. He is on apixaban for atrial fibrillation or possible thromboembolism originating in the dilated left ventricle or dilated left atrium. Continue blood pressure control and continue statin. Congestive heart failure with dilated cardiomyopathy. Continue metoprolol and sacubitril/valsartan. Appears compensated. Kyphoscoliosis. He may benefit from physical therapy interventions. He has Percocet ordered at very small doses in case he has pain. Also ordered acetaminophen. Continue cholecalciferol and calcium supplementation. Blood pressure control. He has had low blood pressures in the hospital but denies any symptoms. He will be monitored. Consider checking orthostatics. Continue his antihypertensive medications at present. Prophylaxis: Apixaban will suffice for DVT prophylaxis. Followup: He will see his primary care provider, Dr. Kamilla Gomez, in followup. 10/01/18 11:55 Subjective: Reports he feels frustrated. Slept well. Not in pain. No cough or dyspnea, no fevers or chills. Objective: Vital Signs Temp Pulse Resp BP Pulse Ox 36.6 C 60 15 120/64 93 10/01/18 05:50 10/01/18 05:50 10/01/18 05:50 10/01/18 05:50 10/01/18 05:50 09/30/18 10/01/18 10/02/18 05:59 05:59 05:59 Intake Total 640 240 Output Total 800 Balance -160 240 Physical Exam - Physical Exam General Appearance: WD/WN, alert, no apparent distress Respiratory: normal breath sounds, No crackles, No rhonchi, No wheezing Cardiac/Chest: regular rate, rhythm, systolic murmur, other (Distant heart sounds), No edema, No JVD Skin: normal color, warm/dry Neuro/Psych: alert, normal mood/affect, oriented x 3 ICD10 Worksheet Patient Problems: Problems Problem Status Onset Acute ischemic stroke Acute Right sided weakness Acute
--- NOTE | 2018-10-01 10:29 | PDOREHIP ---
Admission [facility] - Admission - 3 Day Assessment Period Admission Date/Day 1: 09/30/18 Day 2: 10/01/18 Day 3: 10/02/18 - Active Diagnoses Comorbidities and Co-existing Conditions at Admission: [id number]. None of the Above - Skin Conditions Unhealed Pressure Ulcer (1 or more/Stage 1 or >)-Admission: 0. No # Stage 1 Pressure Ulcers-Admission: 0 # Stage 2 Pressure Ulcers-Admission: 0 # Stage 3 Pressure Ulcers-Admission: 0 # Stage 4 Pressure Ulcers-Admission: 0 # Unstageable Pressure Ulcers (Non-remove Dress)-Admission: 0 # Unstageable Pressure Ulcers (Slough/Eschar)-Admission: 0 # Unstageable Pressure Ulcers (Deep Tissue Injury)-Admission: 0
[2018-10-01] MEDS: PRESERVISION AREDS2 FORMULA EYE VIT 1 EACH PO SCH (18:01)
[2018-10-01] MEDS: CHOLECALCIFEROL VIT D3 1,000 UNITS TAB PO SCH (18:01)
[2018-10-01] MEDS: ATORVASTATIN CALCIUM 40 MG TAB PO SCH (18:01)
[2018-10-01] MEDS: DONEPEZIL HCL 5 MG TAB PO SCH (18:02)
[2018-10-01] MEDS: DULoxetine 30 MG CAP PO SCH (18:02)
[2018-10-01] MEDS: GABAPENTIN 100 MG CAP PO SCH (20:19)
[2018-10-02] MEDS: LEVOTHYROXINE 75 MCG TAB PO SCH (06:05)
[2018-10-02] MEDS: ASPIRIN 81 MG CHEWABLE TAB PO SCH (08:42)
[2018-10-02] MEDS: METOPROLOL SUCCINATE XR 25 MG TAB PO SCH (08:42)
[2018-10-02] MEDS: CALCIUM CARB W/VIT D 500 MG TAB PO SCH ×2 (08:42→20:41)
[2018-10-02] MEDS: MEMANTINE HCL 5 MG TAB PO SCH ×2 (08:42→20:42)
[2018-10-02] MEDS: SACUBITRIL/VALSARTAN 24/26MG 1 EA TAB PO SCH ×2 (08:43→20:42)
[2018-10-02] MEDS: APIXABAN 5 MG TAB PO SCH ×2 (08:43→20:42)
--- NOTE | 2018-10-02 10:48 | SOAPPROG ---
SOAP Progress Note Assessment/Plan: Assessment: Cerebrovascular accident with impaired balance, activities of daily living and right lower visual field deficit. PT and OT to optimize mobility and activities of daily living toward the modified independent or independent level. Cognitive impairment was pre-existing. * Scored 13/30 on a SLUMS. * Continue Speech and Language Pathology to optimize his cognition towards baseline. Continue memantine and donepezil. His was not sure if these medications had helped his memory. Secondary prophylaxis of cerebrovascular accident. He is on apixaban for atrial fibrillation or possible thromboembolism originating in the dilated left ventricle or dilated left atrium. Continue blood pressure control and continue statin. Congestive heart failure with dilated cardiomyopathy. Continue metoprolol and sacubitril/valsartan. Appears compensated. Kyphoscoliosis. He may benefit from physical therapy interventions. He has Percocet ordered at very small doses in case he has pain. Also ordered acetaminophen. Continue cholecalciferol and calcium supplementation. Blood pressure control. He has had low blood pressures in the hospital but denies any symptoms. He will be monitored. Consider checking orthostatics. Continue his antihypertensive medications at present. Prophylaxis: Apixaban will suffice for DVT prophylaxis. Followup: He will see his primary care provider, Dr. Kamilla Gomez, in followup. He should see Neuro-Ophthalmology. 10/02/18 09:59 Subjective: Reports he continues to be generally pessimistic. Continues to have double vision. Slept well. No cough or dyspnea, no fevers or chills. Not in pain. Objective: Vital Signs Temp Pulse Resp BP Pulse Ox 36.5 C 64 16 104/67 95 10/02/18 08:00 10/02/18 08:00 10/02/18 08:00 10/02/18 08:00 10/02/18 08:00 10/01/18 10/02/18 10/03/18 05:59 05:59 05:59 Intake Total 640 1170 400 Output Total 800 Balance -160 1170 400 Physical Exam - Physical Exam General Appearance: WD/WN, alert, no apparent distress Respiratory: normal breath sounds, No crackles, No rhonchi, No wheezing Cardiac/Chest: regular rate, rhythm, No edema, No diastolic murmur, No systolic murmur Skin: normal color, warm/dry Neuro/Psych: alert, normal mood/affect, oriented x 3, abnormal gait (Narrow base , flexed posture, slow, with front wheeled walker and contact guard per physical therapist.) ICD10 Worksheet Patient Problems: Problems Problem Status Onset Acute ischemic stroke Acute Right sided weakness Acute
[2018-10-02] MEDS: DULoxetine 30 MG CAP PO SCH (17:09)
[2018-10-02] MEDS: ATORVASTATIN CALCIUM 40 MG TAB PO SCH (17:10)
[2018-10-02] MEDS: DONEPEZIL HCL 5 MG TAB PO SCH (17:10)
[2018-10-02] MEDS: CHOLECALCIFEROL VIT D3 1,000 UNITS TAB PO SCH (17:10)
[2018-10-02] MEDS: PRESERVISION AREDS2 FORMULA EYE VIT 1 EACH PO SCH (17:10)
[2018-10-02] MEDS: GABAPENTIN 100 MG CAP PO SCH (20:41)
[2018-10-03] MEDS: LEVOTHYROXINE 75 MCG TAB PO SCH (05:40)
[2018-10-03] MEDS: METOPROLOL SUCCINATE XR 25 MG TAB PO SCH (08:11)
[2018-10-03] MEDS: CALCIUM CARB W/VIT D 500 MG TAB PO SCH ×2 (08:11→20:45)
[2018-10-03] MEDS: ASPIRIN 81 MG CHEWABLE TAB PO SCH (08:13)
[2018-10-03] MEDS: SACUBITRIL/VALSARTAN 24/26MG 1 EA TAB PO SCH ×2 (08:13→20:44)
[2018-10-03] MEDS: APIXABAN 5 MG TAB PO SCH ×2 (08:13→20:45)
[2018-10-03] MEDS: MEMANTINE HCL 5 MG TAB PO SCH ×2 (08:13→20:45)
--- NOTE | 2018-10-03 10:59 | SOAPPROG ---
SOAP Progress Note Assessment/Plan: Assessment: Cerebrovascular accident with impaired balance, activities of daily living and right lower visual field deficit. PT and OT to optimize mobility and activities of daily living toward the modified independent or independent level. ON 10/03, PATIENT REPORTS THAT HE HAS DECREASED VISUAL ACUITY ON LEFT SIDE. IN TEAM ROUNDS THIS MORNING, PHYSICAL THERAPIST ALSO NOTED SIMILAR COMPLAINTS. WILL ASK SPEECH THERAPY TO EVALUATE FOR NEW LEFT VISUAL FIELD DEFICITS. IF THIS IS POSITIVE, THEN WILL OBTAIN OPHTHALMOLOGY CONSULT. Cognitive impairment was pre-existing. * Scored 13/30 on a SLUMS. * Continue Speech and Language Pathology to optimize his cognition towards baseline. Continue memantine and donepezil. His was not sure if these medications had helped his memory. Secondary prophylaxis of cerebrovascular accident. He is on apixaban for atrial fibrillation or possible thromboembolism originating in the dilated left ventricle or dilated left atrium. Continue blood pressure control and continue statin. BLOOD PRESSURE ON 10/03 111/69 Congestive heart failure with dilated cardiomyopathy. Continue metoprolol and sacubitril/valsartan. Appears compensated. NO COMPLAINTS OF SHORTNESS OF BREATH. NO PERIPHERAL EDEMA. Kyphoscoliosis. He may benefit from physical therapy interventions. He has Percocet ordered at very small doses in case he has pain. Also ordered acetaminophen. Continue cholecalciferol and calcium supplementation. Blood pressure control. He has had low blood pressures in the hospital but denies any symptoms. He will be monitored. Consider checking orthostatics. Continue his antihypertensive medications at present. Prophylaxis: Apixaban will suffice for DVT prophylaxis. Followup: He will see his primary care provider, Dr. Kamilla Gomez, in followup. He should see Neuro-Ophthalmology. Plan: 10/03/18 11:00 Subjective: He reports that his left visual field, left upper and left lower extremity feels "off ". Denies headache, diplopia, worsening right upper or lower extremity sensory or motor deficits. Denies anginal like symptoms or shortness of breath. Objective: Vital Signs Temp Pulse Resp BP Pulse Ox 36.5 C 55 L 15 111/69 94 10/03/18 05:45 10/03/18 08:11 10/03/18 05:45 10/03/18 08:13 10/03/18 05:45 10/02/18 10/03/18 10/04/18 05:59 05:59 05:59 Intake Total 1170 1500 Balance 1170 1500 Physical Exam - Physical Exam General Appearance: WD/WN, alert, no apparent distress Neck: supple, normal inspection Respiratory: chest non-tender, lungs clear, normal breath sounds Abdomen: non-tender, soft Skin: normal color, warm/dry Extremities: No swelling, No Grace's sign Neuro/Psych: alert, normal mood/affect, oriented x 3 (Able to recall 3/3 words immediately and 2/3 after 5 min but could recall 3rd object with prompting.), cognition abnormalities (Difficulties with memory, concentration and executive function per speech therapist evaluation.) ICD10 Worksheet Patient Problems: Problems Problem Status Onset Acute ischemic stroke Acute Right sided weakness Acute
[2018-10-03] MEDS: DULoxetine 30 MG CAP PO SCH (17:32)
[2018-10-03] MEDS: CHOLECALCIFEROL VIT D3 1,000 UNITS TAB PO SCH (17:32)
[2018-10-03] MEDS: PRESERVISION AREDS2 FORMULA EYE VIT 1 EACH PO SCH (17:32)
[2018-10-03] MEDS: DONEPEZIL HCL 5 MG TAB PO SCH (17:33)
[2018-10-03] MEDS: ATORVASTATIN CALCIUM 40 MG TAB PO SCH (17:33)
[2018-10-03] MEDS: GABAPENTIN 100 MG CAP PO SCH (20:45)
[2018-10-04] MEDS: LEVOTHYROXINE 75 MCG TAB PO SCH (06:14)
[2018-10-04] MEDS: APIXABAN 5 MG TAB PO SCH ×2 (09:37→20:12)
[2018-10-04] MEDS: MEMANTINE HCL 5 MG TAB PO SCH ×2 (09:37→20:12)
[2018-10-04] MEDS: ASPIRIN 81 MG CHEWABLE TAB PO SCH (09:37)
[2018-10-04] MEDS: CALCIUM CARB W/VIT D 500 MG TAB PO SCH ×2 (09:37→20:12)
[2018-10-04] MEDS: METOPROLOL SUCCINATE XR 25 MG TAB PO SCH (09:49)
[2018-10-04] MEDS: SACUBITRIL/VALSARTAN 24/26MG 1 EA TAB PO SCH ×2 (09:50→20:27)
--- NOTE | 2018-10-04 10:07 | SOAPPROG ---
SOAP Progress Note Assessment/Plan: Assessment: Cerebrovascular accident with impaired balance, activities of daily living and right lower visual field deficit. PT and OT to optimize mobility and activities of daily living toward the modified independent or independent level. PATIENT REPORTS NO LEFT VISUAL FIELD DEFICITS 10/04 MORNING ROUNDS. HE DESCRIBES THAT HE DOES NOT FEEL THAT HIS VISION IS COMPLETELY RIGHT BUT HE DOES NOT DESCRIBE ANY VISUAL FIELD CUTS, SCOTOMA OR FLASHES. Cognitive impairment was pre-existing. * Scored 13/30 on a SLUMS. * Continue Speech and Language Pathology to optimize his cognition towards baseline. Continue memantine and donepezil. His was not sure if these medications had helped his memory. Secondary prophylaxis of cerebrovascular accident. He is on apixaban for atrial fibrillation or possible thromboembolism originating in the dilated left ventricle or dilated left atrium. Continue blood pressure control and continue statin. BLOOD PRESSURE ON 10/04 77/53. BP MEDS HELD THIS MORNING. THIS WAS DISCUSSED WITH NURSING. Congestive heart failure with dilated cardiomyopathy. Continue metoprolol and sacubitril/valsartan. Appears compensated. NO COMPLAINTS OF SHORTNESS OF BREATH. NO PERIPHERAL EDEMA. Kyphoscoliosis. He may benefit from physical therapy interventions. He has Percocet ordered at very small doses in case he has pain. Also ordered acetaminophen. Continue cholecalciferol and calcium supplementation. Blood pressure control. HE WAS NOT ORTHOSTATIC THIS MORNING PER NURSING. Prophylaxis: Apixaban will suffice for DVT prophylaxis. Followup: He will see his primary care provider, Dr. Kamilla Gomez, in followup. He should see Neuro-Ophthalmology. 10/04/18 10:04 Subjective: NO COMPLAINTS REPORTED BY PATIENT OR REHAB STAFF. PATIENT REPORTS THAT HE IS TOLERATING THERAPIES WELL. Objective: Vital Signs Temp Pulse Resp BP Pulse Ox 36.5 C 55 L 16 74/54 L 94 10/04/18 07:55 10/04/18 09:28 10/04/18 07:55 10/04/18 09:32 10/04/18 07:55 10/03/18 10/04/18 10/05/18 05:59 05:59 05:59 Intake Total 1500 1000 Output Total 1 Balance 1500 1000 -1 Physical Exam - Physical Exam General Appearance: WD/WN, alert, no apparent distress Respiratory: lungs clear, normal breath sounds Cardiac/Chest: JVD, No edema Abdomen: normal bowel sounds, non-tender, soft Skin: normal color, warm/dry Neuro/Psych: no motor/sensory deficits (MOTOR TESTING REVEALS AT LEAST 4/5. PROXIMAL AND DISTAL MUSCLE GROUPS OF BOTH UPPER AND LOWER EXTREMITIES. GAIT EVALUATION: PATIENT TAKES SHORT ALMOST A FALLING TYPE STEPS WITHOUT EVIDENCE OF KNEE OR ANKLE INSTABILITY.), alert, normal mood/affect, cognition abnormalities ICD10 Worksheet Patient Problems: Problems Problem Status Onset Acute ischemic stroke Acute Right sided weakness Acute
[2018-10-04] MEDS: DULoxetine 30 MG CAP PO SCH (17:41)
[2018-10-04] MEDS: PRESERVISION AREDS2 FORMULA EYE VIT 1 EACH PO SCH (17:41)
[2018-10-04] MEDS: CHOLECALCIFEROL VIT D3 1,000 UNITS TAB PO SCH (17:41)
[2018-10-04] MEDS: ATORVASTATIN CALCIUM 40 MG TAB PO SCH (17:41)
[2018-10-04] MEDS: DONEPEZIL HCL 5 MG TAB PO SCH (17:42)
[2018-10-04] MEDS: GABAPENTIN 100 MG CAP PO SCH (20:12)
[2018-10-05] MEDS: LEVOTHYROXINE 75 MCG TAB PO SCH (06:20)
[2018-10-05] MEDS: ASPIRIN 81 MG CHEWABLE TAB PO SCH (08:57)
[2018-10-05] MEDS: APIXABAN 5 MG TAB PO SCH ×2 (08:57→20:46)
[2018-10-05] MEDS: CALCIUM CARB W/VIT D 500 MG TAB PO SCH ×2 (08:57→20:46)
[2018-10-05] MEDS: SACUBITRIL/VALSARTAN 24/26MG 1 EA TAB PO SCH ×2 (08:58→20:45)
[2018-10-05] MEDS: METOPROLOL SUCCINATE XR 25 MG TAB PO SCH (08:59)
[2018-10-05] MEDS: MEMANTINE HCL 5 MG TAB PO SCH ×2 (08:59→20:46)
--- NOTE | 2018-10-05 10:00 | SOAPPROG ---
SOAP Progress Note Assessment/Plan: Assessment: Cerebrovascular accident with impaired balance, activities of daily living and right lower visual field deficit. PT and OT to optimize mobility and activities of daily living toward the modified independent or independent level. Blood pressure control. BLOOD PRESSURE 10/05 100/54. THEREFORE METOPROLOL WAS HELD. PATIENT NOTED TO HAVE RESTING HEART RATE 54, 60 WHEN SERIALLY CHECKED ON EXAM 5/ A.M. HE DENIES SYMPTOMS CONSISTENT WITH ORTHOSTATIC HYPOTENSION. WILL CHECK BUN/CREATININE IN A.M. OF 10/06 TO CHECK FOR DEHYDRATION. CLINICALLY, HE DOES APPEAR A LITTLE DRY. FLUIDS ENCOURAGED. Cognitive impairment was pre-existing. * Scored 13/30 on a SLUMS. * Continue Speech and Language Pathology to optimize his cognition towards baseline. Continue memantine and donepezil. His was not sure if these medications had helped his memory. Secondary prophylaxis of cerebrovascular accident. He is on apixaban for atrial fibrillation or possible thromboembolism originating in the dilated left ventricle or dilated left atrium. Continue blood pressure control and continue statin. Congestive heart failure with dilated cardiomyopathy. Continue metoprolol and sacubitril/valsartan. Appears compensated. NO COMPLAINTS OF SHORTNESS OF BREATH. NO PERIPHERAL EDEMA. Kyphoscoliosis. He may benefit from physical therapy interventions. He has Percocet ordered at very small doses in case he has pain. Also ordered acetaminophen. Continue cholecalciferol and calcium supplementation. Prophylaxis: Apixaban will suffice for DVT prophylaxis. Followup: He will see his primary care provider, Dr. Kamilla Gomez, in followup. He should see Neuro-Ophthalmology. 10/05/18 09:56 Subjective: NO COMPLAINTS REPORTED BY PATIENT OR REHAB STAFF. PATIENT DENIES FEELING LIGHTHEADED OR DIZZY, ESPECIALLY WHEN GOING FROM [place] TO SIT OR SIT TO STAND. DENIES IRREGULAR HEART RATE. DENIES SHORTNESS OF BREATH. Objective: Vital Signs Temp Pulse Resp BP Pulse Ox 36.5 C 58 L 16 100/54 L 96 10/05/18 06:37 10/05/18 07:52 10/04/18 20:04 10/05/18 07:52 10/05/18 07:52 10/04/18 10/05/18 10/06/18 05:59 05:59 05:59 Intake Total 1000 1390 360 Output Total 726 Balance 1000 664 360 Physical Exam - Physical Exam General Appearance: WD/WN, alert, no apparent distress Respiratory: lungs clear, normal breath sounds, No crackles, No rales Cardiac/Chest: bradycardia, No edema Abdomen: non-tender, soft, other (NO SUPRAPUBIC TENDERNESS) Skin: normal color, warm/dry Extremities: No swelling, No Grace's sign Neuro/Psych: no motor/sensory deficits, alert, cognition abnormalities ICD10 Worksheet Patient Problems: Problems Problem Status Onset Acute ischemic stroke Acute Right sided weakness Acute
[2018-10-05] MEDS: ATORVASTATIN CALCIUM 40 MG TAB PO SCH (17:24)
[2018-10-05] MEDS: PRESERVISION AREDS2 FORMULA EYE VIT 1 EACH PO SCH (17:24)
[2018-10-05] MEDS: CHOLECALCIFEROL VIT D3 1,000 UNITS TAB PO SCH (17:24)
[2018-10-05] MEDS: DULoxetine 30 MG CAP PO SCH (17:25)
[2018-10-05] MEDS: DONEPEZIL HCL 5 MG TAB PO SCH (17:25)
[2018-10-05] MEDS: GABAPENTIN 100 MG CAP PO SCH (20:50)
[2018-10-06] MEDS: LEVOTHYROXINE 75 MCG TAB PO SCH (05:56)
[2018-10-06] MEDS: ASPIRIN 81 MG CHEWABLE TAB PO SCH (08:20)
[2018-10-06] MEDS: CALCIUM CARB W/VIT D 500 MG TAB PO SCH ×2 (08:20→21:00)
[2018-10-06] MEDS: MEMANTINE HCL 5 MG TAB PO SCH ×2 (08:21→20:58)
[2018-10-06] MEDS: METOPROLOL SUCCINATE XR 25 MG TAB PO SCH (08:21)
[2018-10-06] MEDS: SACUBITRIL/VALSARTAN 24/26MG 1 EA TAB PO SCH ×2 (08:22→20:59)
[2018-10-06] MEDS: APIXABAN 5 MG TAB PO SCH ×2 (08:22→20:58)
--- NOTE | 2018-10-06 09:56 | SOAPPROG ---
SOAP Progress Note Assessment/Plan: Assessment: Cerebrovascular accident with impaired balance, activities of daily living and right lower visual field deficit. * Initial functional independence measure is 85 on 10/03/2018. Standby assist and occasional contact guard assist due to retro pulse of tendency for transfers. Ambulating standby assist with front wheeled walker 150 ft. Grooming and hygiene standing at the sink with standby assist. Contact guard assist for lower body dressing for balance. Contact guard assist for toilet transfer and then standby assist for toileting. * Continue PT and OT to optimize mobility and activities of daily living toward the modified independent or independent level. Cognitive impairment was pre-existing. * Scored 13/30 on a SLUMS. * Continue Speech and Language Pathology to optimize his cognition towards baseline. Continue memantine and donepezil. His was not sure if these medications had helped his memory. Secondary prophylaxis of cerebrovascular accident. He is on apixaban for atrial fibrillation or possible thromboembolism originating in the dilated left ventricle or dilated left atrium. Continue blood pressure control and continue statin. Congestive heart failure with dilated cardiomyopathy. Continue metoprolol and sacubitril/valsartan. Appears compensated. Kyphoscoliosis. He may benefit from physical therapy interventions. He has Percocet ordered at very small doses in case he has pain. Also ordered acetaminophen. Continue cholecalciferol and calcium supplementation. Blood pressure control. He has had low blood pressures in the hospital but denies any symptoms. He will be monitored. Consider checking orthostatics. Continue his antihypertensive medications at present. Prophylaxis: Apixaban will suffice for DVT prophylaxis. DISPOSITION: Lives with his who is primary caregiver. Planning to return home. Tentative discharge date set for 10/10/2018. Followup: He will see his primary care provider, Dr. Kamilla Gomez, in followup. He should see Neuro-Ophthalmology. 10/06/18 10:56 Subjective: No complaints. Wishes he were not in rehab. Sleeping well. Not in pain. No fevers or chills. No cough or dyspnea. Objective: Vital Signs Temp Pulse Resp BP Pulse Ox 36.4 C 70 16 118/71 97 10/06/18 07:05 10/06/18 07:05 10/06/18 07:05 10/06/18 07:05 10/06/18 07:05 Laboratory Results 10/06/18 04:52 10/05/18 10/06/18 10/07/18 05:59 05:59 05:59 Intake Total 1390 1940 250 Output Total 726 Balance 664 1940 250 Physical Exam - Physical Exam General Appearance: WD/WN, alert, no apparent distress Respiratory: normal breath sounds, No crackles, No rhonchi, No wheezing Cardiac/Chest: regular rate, rhythm, No edema, No diastolic murmur, No systolic murmur Skin: normal color, warm/dry Neuro/Psych: alert, normal mood/affect, oriented x 3 ICD10 Worksheet Patient Problems: Problems Problem Status Onset Acute ischemic stroke Acute Right sided weakness Acute
[2018-10-06] MEDS: CHOLECALCIFEROL VIT D3 1,000 UNITS TAB PO SCH (17:09)
[2018-10-06] MEDS: PRESERVISION AREDS2 FORMULA EYE VIT 1 EACH PO SCH (17:09)
[2018-10-06] MEDS: DULoxetine 30 MG CAP PO SCH (17:09)
[2018-10-06] MEDS: ATORVASTATIN CALCIUM 40 MG TAB PO SCH (17:10)
[2018-10-06] MEDS: DONEPEZIL HCL 5 MG TAB PO SCH (17:10)
[2018-10-06] MEDS: GABAPENTIN 100 MG CAP PO SCH (20:58)
[2018-10-07] MEDS: LEVOTHYROXINE 75 MCG TAB PO SCH (06:09)
[2018-10-07] MEDS: METOPROLOL SUCCINATE XR 25 MG TAB PO SCH (08:18)
[2018-10-07] MEDS: MEMANTINE HCL 5 MG TAB PO SCH ×2 (08:19→20:56)
[2018-10-07] MEDS: SACUBITRIL/VALSARTAN 24/26MG 1 EA TAB PO SCH ×2 (08:19→20:56)
[2018-10-07] MEDS: APIXABAN 5 MG TAB PO SCH ×2 (08:19→20:57)
[2018-10-07] MEDS: CALCIUM CARB W/VIT D 500 MG TAB PO SCH ×2 (08:20→20:57)
[2018-10-07] MEDS: ASPIRIN 81 MG CHEWABLE TAB PO SCH (08:20)
--- NOTE | 2018-10-07 12:00 | SOAPPROG ---
SOAP Progress Note Assessment/Plan: Assessment: Cerebrovascular accident with impaired balance and activities of daily living, and right lower visual field deficit. * Initial functional independence measure is 85 on 10/03/2018. Standby assist and occasional contact guard assist due to retro pulse of tendency for transfers. Ambulating standby assist with front wheeled walker 150 ft. Grooming and hygiene standing at the sink with standby assist. Contact guard assist for lower body dressing for balance. Contact guard assist for toilet transfer and then standby assist for toileting. * Trial of independent in his room with front wheeled walker starting 10/07/2018. * Continue PT and OT to optimize mobility and activities of daily living toward the modified independent or independent level. Cognitive impairment was pre-existing. * Scored 13/30 on a SLUMS. * Continue Speech and Language Pathology to optimize his cognition towards baseline. Continue memantine and donepezil. His was not sure if these medications had helped his memory. Secondary prophylaxis of cerebrovascular accident. He is on apixaban for atrial fibrillation or possible thromboembolism originating in the dilated left ventricle or dilated left atrium. Continue blood pressure control and continue statin. Congestive heart failure with dilated cardiomyopathy. Continue metoprolol and sacubitril/valsartan. Appears compensated. * Trace edema noted 10/07/2018. Will get weight. Kyphoscoliosis. He may benefit from physical therapy interventions. He has Percocet ordered at very small doses in case he has pain. Also ordered acetaminophen. Continue cholecalciferol and calcium supplementation. Blood pressure control. He has had low blood pressures in the hospital but denies any symptoms. He will be monitored. Consider checking orthostatics. Continue his antihypertensive medications at present. Prophylaxis: Apixaban will suffice for DVT prophylaxis. DISPOSITION: Lives with his who is primary caregiver. Planning to return home. Tentative discharge date set for 10/10/2018. Will have home PT OT and [employer]. Followup: He will see his primary care provider, Dr. Kamilla Gomez, in followup. He should see Neuro-Ophthalmology. 10/07/18 11:57 Subjective: OT has noted double vision with distant gaze. He did not tolerate attempted taping but found it annoying, though eliminated the double vision. He says he feels frustrated. He is sleeping well. He is not in pain. No cough or dyspnea. Objective: Vital Signs Temp Pulse Resp BP Pulse Ox 36.4 C 62 18 108/72 98 10/07/18 08:00 10/07/18 08:18 10/07/18 08:00 10/07/18 08:19 10/07/18 08:00 Laboratory Results 10/06/18 04:52 10/06/18 10/07/18 10/08/18 05:59 05:59 05:59 Intake Total 1939 1730 360 Balance 194 1730 360 Physical Exam - Physical Exam General Appearance: WD/WN, alert, no apparent distress Respiratory: normal breath sounds, No crackles, No rhonchi, No wheezing Cardiac/Chest: regular rate, rhythm, edema (Trace bilateral pretibial), other ( Distant heart sounds), No diastolic murmur, No systolic murmur Skin: normal color, warm/dry Neuro/Psych: alert, normal mood/affect, oriented x 3 ICD10 Worksheet Patient Problems: Problems Problem Status Onset Acute ischemic stroke Acute Right sided weakness Acute
[2018-10-07] MEDS: PRESERVISION AREDS2 FORMULA EYE VIT 1 EACH PO SCH (17:18)
[2018-10-07] MEDS: DONEPEZIL HCL 5 MG TAB PO SCH (17:18)
[2018-10-07] MEDS: ATORVASTATIN CALCIUM 40 MG TAB PO SCH (17:18)
[2018-10-07] MEDS: DULoxetine 30 MG CAP PO SCH (17:18)
[2018-10-07] MEDS: CHOLECALCIFEROL VIT D3 1,000 UNITS TAB PO SCH (17:18)
[2018-10-07] MEDS: GABAPENTIN 100 MG CAP PO SCH (20:57)
[2018-10-08] MEDS: LEVOTHYROXINE 75 MCG TAB PO SCH (05:38)
[2018-10-08] MEDS: MEMANTINE HCL 5 MG TAB PO SCH ×2 (08:29→21:13)
[2018-10-08] MEDS: SACUBITRIL/VALSARTAN 24/26MG 1 EA TAB PO SCH ×2 (08:30→21:13)
[2018-10-08] MEDS: METOPROLOL SUCCINATE XR 25 MG TAB PO SCH (08:30)
[2018-10-08] MEDS: CALCIUM CARB W/VIT D 500 MG TAB PO SCH ×2 (08:30→21:13)
[2018-10-08] MEDS: ASPIRIN 81 MG CHEWABLE TAB PO SCH (08:31)
[2018-10-08] MEDS: APIXABAN 5 MG TAB PO SCH ×2 (08:31→21:13)
--- NOTE | 2018-10-08 12:07 | SOAPPROG ---
SOAP Progress Note Assessment/Plan: Assessment: Cerebrovascular accident with impaired balance and activities of daily living, and right lower visual field deficit. * Initial functional independence measure is 85 on 10/03/2018. Standby assist and occasional contact guard assist due to retro pulse of tendency for transfers. Ambulating standby assist with front wheeled walker 150 ft. Grooming and hygiene standing at the sink with standby assist. Contact guard assist for lower body dressing for balance. Contact guard assist for toilet transfer and then standby assist for toileting. * Trial of independent in his room with front wheeled walker starting 10/07/2018. * Continue PT and OT to optimize mobility and activities of daily living toward the modified independent or independent level. Cognitive impairment was pre-existing. * Scored 13/30 on a SLUMS. * Continue Speech and Language Pathology to optimize his cognition towards baseline. Continue memantine and donepezil. His was not sure if these medications had helped his memory. Secondary prophylaxis of cerebrovascular accident. He is on apixaban for atrial fibrillation or possible thromboembolism originating in the dilated left ventricle or dilated left atrium. Continue blood pressure control and continue statin. Congestive heart failure with dilated cardiomyopathy. Continue metoprolol and sacubitril/valsartan. Appears compensated. * Trace edema noted 10/07/2018. Weight is stable. No edema on exam 10/08/2018. Kyphoscoliosis. He may benefit from physical therapy interventions. He has Percocet ordered at very small doses in case he has pain. Also ordered acetaminophen. Continue cholecalciferol and calcium supplementation. Blood pressure control. He has had low blood pressures in the hospital but denies any symptoms. He will be monitored. Consider checking orthostatics. Continue his antihypertensive medications at present. Prophylaxis: Apixaban will suffice for DVT prophylaxis. DISPOSITION: Lives with his who is primary caregiver. Planning to return home. Tentative discharge date set for 10/10/2018. Will have home PT OT and FUSE SPOOLER. Followup: He will see his primary care provider, Dr. Kamilla Gomez, in followup. He should see Neuro-Ophthalmology. 10/08/18 12:06 Subjective: No complaints. Sleeping well. Not in pain. No fevers or chills, no cough or dyspnea. Objective: Vital Signs Temp Pulse Resp BP Pulse Ox 36.4 C 77 16 115/77 93 10/08/18 05:43 10/08/18 05:43 10/08/18 05:43 10/08/18 05:43 10/08/18 05:43 Laboratory Results 10/06/18 04:52 10/07/18 10/08/18 10/09/18 05:59 05:59 05:59 Intake Total 1730 1720 Balance 1730 1720 Physical Exam - Physical Exam General Appearance: WD/WN, alert, no apparent distress Respiratory: normal breath sounds, No crackles, No rhonchi, No wheezing Cardiac/Chest: regular rate, rhythm, No edema, No diastolic murmur, No systolic murmur Skin: normal color, warm/dry Neuro/Psych: alert, normal mood/affect, oriented x 3, abnormal gait (Normal pace , narrow based, slightly flexed posture with kyphoscoliosis, using front wheeled walker.) ICD10 Worksheet Patient Problems: Problems Problem Status Onset Acute ischemic stroke Acute Right sided weakness Acute
[2018-10-08] MEDS: PRESERVISION AREDS2 FORMULA EYE VIT 1 EACH PO SCH (17:29)
[2018-10-08] MEDS: CHOLECALCIFEROL VIT D3 1,000 UNITS TAB PO SCH (17:29)
[2018-10-08] MEDS: DULoxetine 30 MG CAP PO SCH (17:29)
[2018-10-08] MEDS: ATORVASTATIN CALCIUM 40 MG TAB PO SCH (17:30)
[2018-10-08] MEDS: DONEPEZIL HCL 5 MG TAB PO SCH (17:30)
[2018-10-08] MEDS: GABAPENTIN 100 MG CAP PO SCH (21:13)
[2018-10-09] MEDS: LEVOTHYROXINE 75 MCG TAB PO SCH (06:12)
[2018-10-09] MEDS: APIXABAN 5 MG TAB PO SCH ×2 (08:10→21:24)
[2018-10-09] MEDS: CALCIUM CARB W/VIT D 500 MG TAB PO SCH ×2 (08:10→21:24)
[2018-10-09] MEDS: ASPIRIN 81 MG CHEWABLE TAB PO SCH (08:11)
[2018-10-09] MEDS: MEMANTINE HCL 5 MG TAB PO SCH ×2 (08:11→21:24)
[2018-10-09] MEDS: METOPROLOL SUCCINATE XR 25 MG TAB PO SCH (08:11)
[2018-10-09] MEDS: SACUBITRIL/VALSARTAN 24/26MG 1 EA TAB PO SCH ×2 (08:12→21:24)
--- NOTE | 2018-10-09 12:03 | SOAPPROG ---
SOAP Progress Note Assessment/Plan: Assessment: Cerebrovascular accident with impaired balance and activities of daily living, and right lower visual field deficit. * Initial functional independence measure is 85 on 10/03/2018. Standby assist and occasional contact guard assist due to retro pulse of tendency for transfers. Ambulating standby assist with front wheeled walker 150 ft. Grooming and hygiene standing at the sink with standby assist. Contact guard assist for lower body dressing for balance. Contact guard assist for toilet transfer and then standby assist for toileting. * Independent in his room with front wheeled walker starting 10/07/2018. * Continue PT and OT to optimize mobility and activities of daily living toward the modified independent or independent level. Cognitive impairment was pre-existing. * Scored 13/30 on a SLUMS. * Continue Speech and Language Pathology to optimize his cognition towards baseline. Continue memantine and donepezil. His was not sure if these medications had helped his memory. Secondary prophylaxis of cerebrovascular accident. He is on apixaban for atrial fibrillation or possible thromboembolism originating in the dilated left ventricle or dilated left atrium. Continue blood pressure control and continue statin. Congestive heart failure with dilated cardiomyopathy. Continue metoprolol and sacubitril/valsartan. Appears compensated. * Trace edema noted 10/07/2018. Weight is stable. No edema on exam 10/08/2018. Kyphoscoliosis. He may benefit from physical therapy interventions. He has Percocet ordered at very small doses in case he has pain. Also ordered acetaminophen. Continue cholecalciferol and calcium supplementation. Blood pressure control. He has had low blood pressures in the hospital but denies any symptoms. He will be monitored. Consider checking orthostatics. Continue his antihypertensive medications at present. Prophylaxis: Apixaban will suffice for DVT prophylaxis. DISPOSITION: Lives with his who is primary caregiver. Planning to return home. Tentative discharge date set for 10/10/2018. Will have home PT OT and HOSPITAL PHARMACY TECHNICIAN. Followup: He will see his primary care provider, Dr. Kamilla Gomez, in followup. He should see Neuro-Ophthalmology. 10/09/18 12:03 Subjective: No complaints. Happy to be going home tomorrow. Slept well. Not in pain. No cough or dyspnea, no fevers or chills. Objective: Vital Signs Temp Pulse Resp BP Pulse Ox 36.6 C 78 16 110/71 93 10/09/18 06:19 10/09/18 06:19 10/09/18 06:19 10/09/18 06:19 10/09/18 06:19 Laboratory Results 10/06/18 04:52 10/08/18 10/09/18 10/10/18 05:59 05:59 05:59 Intake Total 1720 1620 360 Balance 1720 1620 360 Physical Exam - Physical Exam General Appearance: WD/WN, alert, no apparent distress Respiratory: normal breath sounds, No crackles, No rhonchi, No wheezing Cardiac/Chest: regular rate, rhythm, No diastolic murmur, No systolic murmur Skin: normal color, warm/dry Neuro/Psych: alert, normal mood/affect, oriented x 3 ICD10 Worksheet Patient Problems: Problems Problem Status Onset Acute ischemic stroke Acute Right sided weakness Acute
--- NOTE | 2018-10-09 12:08 | PDOREHIP ---
Admission [facility] - Admission - 3 Day Assessment Period Admission Date/Day 1: 09/30/18 Day 2: 10/01/18 Day 3: 10/02/18 - Active Diagnoses Comorbidities and Co-existing Conditions at Admission: 39541. None of the Above Discharge [facility] - Discharge - 3 Day Assessment Period 2 Days Prior to Anticipated Discharge Date: 10/08/18 1 Day Prior to Anticipated Discharge Date: 10/09/18 Anticipated Discharge Date: 10/10/18 - Discharge Skin Conditions Unhealed Pressure Ulcer (1 or more/Stage 1 or >)-Discharge: 0. No # Stage 1 Pressure Ulcers-Discharge: 0 # Stage 2 Pressure Ulcers-Discharge: 0 # of These Stage 2 Pressure Ulcers Present on Admission: 0 # Stage 3 Pressure Ulcers-Discharge: 0 # of These Stage 3 Pressure Ulcers Present on Admission: 0 # Stage 4 Pressure Ulcers-Discharge: 0 # of These Stage 4 Pressure Ulcers Present on Admission: 0 # Unstageable Pressure Ulcers (Non-remove Dress)-Discharge: 0 # These Unstageable Pressure Ulcers (NRD)-Present on Admit: 0 # Unstageable Pressure Ulcers (Slough/Eschar)-Discharge: 0 # These Unstageable Pressure Ulcers(Slough) Present on Admit: 0 # Unstageable Pressure Ulcers (Deep Tissue Injury)-Discharge: 0 # These Unstageable Pressure Ulcers (DTI) Present on Admit: 0
[2018-10-09] MEDS: PRESERVISION AREDS2 FORMULA EYE VIT 1 EACH PO SCH (17:35)
[2018-10-09] MEDS: ATORVASTATIN CALCIUM 40 MG TAB PO SCH (17:35)
[2018-10-09] MEDS: DONEPEZIL HCL 5 MG TAB PO SCH (17:35)
[2018-10-09] MEDS: CHOLECALCIFEROL VIT D3 1,000 UNITS TAB PO SCH (17:35)
[2018-10-09] MEDS: DULoxetine 30 MG CAP PO SCH (17:35)
[2018-10-09] MEDS: GABAPENTIN 100 MG CAP PO SCH (21:25)
[2018-10-10] MEDS: LEVOTHYROXINE 75 MCG TAB PO SCH (06:59)
[2018-10-10 08:05] VITALS: BP 94/68
[2018-10-10] MEDS: MEMANTINE HCL 5 MG TAB PO SCH (08:06)
[2018-10-10] MEDS: ASPIRIN 81 MG CHEWABLE TAB PO SCH (08:06)
[2018-10-10] MEDS: APIXABAN 5 MG TAB PO SCH (08:06)
[2018-10-10] MEDS: CALCIUM CARB W/VIT D 500 MG TAB PO SCH (08:07)
[2018-10-10] MEDS: SACUBITRIL/VALSARTAN 24/26MG 1 EA TAB PO SCH (08:20)
[2018-10-10] MEDS: METOPROLOL SUCCINATE XR 25 MG TAB PO SCH (08:20)
--- NOTE | 2018-10-10 12:27 | GDS ---
[f rep st] DISCHARGE SUMMARY ADMITTING DIAGNOSIS: Cerebrovascular accident with right visual field defect. DISCHARGE DIAGNOSIS: Cerebrovascular accident with right visual field defect. OTHER DISCHARGE DIAGNOSES: 1. Cognitive impairment. 2. Atrial fibrillation. 3. Congestive heart failure. COMPLICATIONS: There were none. CONSULTATIONS: There were none. PROCEDURES: There were none. HISTORY AND HOSPITAL COURSE: This patient was admitted from [facility]. He presented there on 09/26/2018, with falls. There were 2 or 3 falls on the day of admission. There was loss of peripheral vision on the right side. An MRI of the brain could not be done due to presence of pacer/ICD. CT scan ruled out intracranial hemorrhage. Cardiology interrogated his pacer and found that he had episodes of atrial fibrillation. Echocardiogram showed a dilated left ventricle with severely reduced left ventricular ejection fraction at approximately 25%, as well as global hypokinesis and multiple focal wall motion abnormalities. There was no thrombus identified in the left ventricle. He had a severely dilated left atrium and mildly dilated right atrium, moderate mitral regurgitation, mild aortic regurgitation, mild aortic stenosis, mild tricuspid regurgitation, and trivial pulmonic regurgitation. With the likelihood of his stroke being due to either atrial fibrillation or cardiac thrombus, he was placed on apixaban. He had previously been taking aspirin and clopidogrel. Clopidogrel was discontinued. He was medically stabilized and ready for inpatient rehabilitation. He did well in rehabilitation. He recovered his balance and was ambulating with a front-wheeled walker initially with standby assist and then independently. He was allowed to be independent in his room with a front- wheeled walker on 10/07/2018, and independent on the unit on the day or two prior to his discharge. Regarding cognitive impairment, this was pre-existing. He was continued on memantine and donepezil, and he was treated by Speech and Language Pathology. He was assessed to need continual supervision at home due to his cognitive issues. He initially scored a 13/30 on the [facility] Mental Status Exam. There may have been improvement subsequently. He was maintained on metoprolol and sacubitril/valsartan for heart failure with dilated cardiomyopathy. There was no decompensation of his heart failure during his stay and his weight was stable. He had occasional low blood pressures. On the morning of discharge, blood pressure was 94/68. He was given a lower dose of metoprolol at 25 mg rather than 37.5 mg. He was given his usual dose of sacubitril/valsartan. DISCHARGE PLAN: DISPOSITION: Home with his . DIET: Regular. ACTIVITY: Ad hyacinth, but he will need supervision for safety due to cognitive impairment and right visual field deficit. ALLERGIES: There were no new drug allergies noted during his stay and he has no known drug allergies. MEDICATIONS: On discharge: 1. Acetaminophen 650 mg p.o. q.4 hours p.r.n. 2. Apixaban 5 mg p.o. b.i.d. 3. Aspirin 81 mg p.o. daily. 4. Atorvastatin 40 mg p.o. daily at 1800. 5. PreserVision multivitamin daily at 1800. 6. Calcium/vitamin-D 1 p.o. b.i.d. 7. Cholecalciferol 400 units p.o. daily at 1800. 8. Donepezil 10 mg p.o. daily at 1800. 9. Duloxetine 30 mg p.o. daily at 1800. 10. Gabapentin 300 mg p.o. at bedtime. 11. Levothyroxine 75 mcg p.o. daily. 12. Memantine 10 mg p.o. b.i.d. 13. Metoprolol succinate 37.5 mg p.o. daily. 14. Oxycodone/acetaminophen 0.5-0.5 tablets q.4 to 6 hours p.r.n. 15. Sacubitril/valsartan 24/26 mg 1 p.o. b.i.d. ISSUES TO BE ADDRESSED AT FOLLOWUP: 1. Mobility and functional status, as well as cognition. He will continue PT, OT and INFANTRY SENIOR SERGEANT after his discharge and he can follow up with his primary care provider. 2. Right lower visual field defect and possible hemineglect. He will follow up with neuro-tactical debriefer, Dr. Gab Claros. 3. Blood pressure and congestive heart failure. He will follow up with his primary senior accountant, Dr. Stinson or PA, Taqueria Rivera. Greater than 30 minutes was spent on this discharge including medication reconciliation, coordination of care and counseling patient and family. /[id number]/MODL MTDD
== END 2018-10-10 11:54 | disposition home health service (06) | DRG 57 ==
LOC: F3E 15:19
PROVIDERS: ADMIT Internal Medicine Hospice and Palliative Medicine; ATTEND Internal Medicine Hospice and Palliative Medicine
DX: I69.398 Other sequelae of cerebral infarction (principal); H53.9 Unspecified visual disturbance; I42.0 Dilated cardiomyopathy; G31.84 Mild cognitive impairment of uncertain or unknown etiology; I48.91 Unspecified atrial fibrillation; I25.10 Atherosclerotic heart disease of native coronary artery without angina pectoris; I50.9 Heart failure, unspecified; I08.0 Rheumatic disorders of both mitral and aortic valves; M41.9 Scoliosis, unspecified; E78.5 Hyperlipidemia, unspecified; Z95.0 Presence of cardiac pacemaker; Z95.810 Presence of automatic (implantable) cardiac defibrillator; Z95.5 Presence of coronary angioplasty implant and graft; Z91.81 History of falling
CPT/HCPCS: 92507-GN; 92523-GN; 97110-GP; 97112-GO; 97112-GP; 97116-GP; 97162-GP; 97166-GO; 97530-GO; 97530-GP; 97535-GO; G0515-GO